=== PATIENT | male | born 1990 | race Caucasian/White ===

== ENCOUNTER 2020-01-24 07:27 | Outpatient (REF) | payer OTHER, SELFPAY ==
[2020-01-24 07:47] LABS: COVID-19 Test Negative (Negative)
== END 2020-01-24 07:28 | disposition home or self-care (01) ==
LOC: HO.LAB 07:27
PROVIDERS: Visit Provider Internal Medicine
DX: Z20.828 Contact with and (suspected) exposure to other viral communicable diseases (principal)
CPT/HCPCS: 87635

== ENCOUNTER 2020-03-05 09:29 | Outpatient (REF) | payer OTHER, SELFPAY ==
[2020-03-05 10:14] LABS: COVID-19 Test Negative (Negative)
== END 2020-03-05 09:30 | disposition home or self-care (01) ==
LOC: HO.EMPCOV 09:29
PROVIDERS: PCP Internal Medicine Sports Medicine; Visit Provider Internal Medicine
DX: Z20.828 Contact with and (suspected) exposure to other viral communicable diseases (principal)
CPT/HCPCS: 87635; C9803

== ENCOUNTER 2020-03-13 08:53 | Outpatient (REF) | payer OTHER, SELFPAY ==
[2020-03-13 09:15] LABS: COVID-19 Test Negative (Negative)
== END 2020-03-13 08:54 | disposition home or self-care (01) ==
LOC: HO.EMPCOV 08:53
PROVIDERS: Visit Provider Internal Medicine
DX: Z20.828 Contact with and (suspected) exposure to other viral communicable diseases (principal)
CPT/HCPCS: 87635; C9803

== ENCOUNTER 2020-04-12 11:30 | Outpatient (REF) | payer OTHER, SELFPAY ==
[2020-04-12 12:11] LABS: COVID-19 Test Negative (Negative)
== END 2020-04-12 11:31 | disposition home or self-care (01) ==
LOC: HO.EMPCOV 11:30
PROVIDERS: Visit Provider Internal Medicine
DX: Z20.828 Contact with and (suspected) exposure to other viral communicable diseases (principal)
CPT/HCPCS: 36415; 87635; C9803

== ENCOUNTER 2020-04-14 09:31 | Outpatient (REF) | payer OTHER, SELFPAY ==
[2020-04-14 09:51] LABS: COVID-19 Test Negative (Negative)
== END 2020-04-14 09:32 | disposition home or self-care (01) ==
LOC: HO.EMPCOV 09:31
PROVIDERS: Visit Provider Internal Medicine
DX: Z20.828 Contact with and (suspected) exposure to other viral communicable diseases (principal)
CPT/HCPCS: 36415; 87635; C9803

== ENCOUNTER 2020-05-04 11:25 | Outpatient (REF) | payer SELFPAY ==
[2020-05-04 13:06] LABS: Cholesterol 158 mg/dL
[2020-05-05 09:22] LABS: SARS COV2 IgG Negative (Negative)
== END 2020-05-04 11:26 | disposition home or self-care (01) ==
LOC: HO.LNC 11:25
PROVIDERS: Visit Provider Pathology Anatomic Pathology & Clinical Pathology
DX: Z13.89 Encounter for screening for other disorder (principal)
CPT/HCPCS: 36415; 82465; 86769

== ENCOUNTER 2020-07-18 21:07 | Emergency (ER) | payer OTHER, SELFPAY ==
--- NOTE | ~2020-07-18 | XR_ITS ---
EXAMINATION: XR CHEST CLINICAL INFORMATION: Dictations COMPARISON: None TECHNIQUE: Frontal view of the chest was obtained. FINDINGS: The lungs are well-expanded and clear of acute process. The heart size and pulmonary vascularity is normal. No gross bony abnormality seen. XR/XR chest 1V IMPRESSION: Unremarkable chest exam.
[2020-07-18 21:27] VITALS: BP 184/102; PULSE 122; RESP 20; TEMP 36.7; O2SAT 98; BMI 27.2
--- NOTE | 2020-07-18 21:32 | ED_ITS ---
HPI - Arrhythmia/Palpitations General Chief Complaint: Chest Pain Stated Complaint: chest tightness Time Seen by Provider: 07/18/20 21:30 Source: patient Mode of arrival: ambulatory Limitations: no limitations History of Present Illness MD complaint: rapid heart beat, heart racing and palpitations Onset (ago): minute(s) (30) Duration: constant Severity: moderate Context: occurred during rest Associated symptoms: chest pain (tightness), shortness of breath and anxiety Related Data Previous Rx's Medication Instructions Recorded metoprolol succinate [Toprol XL] 25 mg PO DAILY #30 tab 07/19/20 Allergies Allergy/AdvReac Type Severity Reaction Status Date / Time environmental Allergy Unknown Uncoded 11/05/17 00:00 SEASONAL ALLERGIES Allergy Unknown RUNNY Uncoded 12/22/19 18:47 NOSE, WATERY EYES seasonal allergies Allergy Unknown Uncoded 05/27/15 00:00 Review of Systems Review of Systems: Constitutional : No Weight loss, No Fever, No Chills ENT/Mouth : No sore throat, No Rhinorrhea Eyes: No Eye Pain, No Swelling Cardiovascular : pos Chest Pain, pos SOB, no Dyspnea on Exertion, No Orthopnea, No Edema, pos Palpitations Respiratory : No Cough, No Sputum Gastrointestinal : no Nausea, No Vomiting, No Diarrhea, No abdominal Pain, No Hematochezia, No Melena Genitourinary : No Dysuria, No Urinary Frequency Musculoskeletal : No joint pain, No Myalgias, No Joint Swelling Skin : No Skin Lesions, No rash Neuro : No Weakness, No Numbness, No Dizziness, No Headache Psych : No Anxiety/Panic, No Depression Heme/Lymph: No Bruising, No Lymphadenopathy Endocrine : No Polyuria, No Polydipsia All other systems reviewed and are negative [facility] Past Medical History Attestation statement: The following information was validated with the patient. Medical History Compartment syndrome of right lower extremity Social History Social History (Updated 07/18/20 @ 21:56 by Lillian Amor DO) Alcohol intake: never Smoking Status: Never smoker Use of substances other than those prescribed or required for medical reasons: No Advance Directives: No Physical Exam Vital Signs: Vital Signs: Last Vital Signs Temp 98.2 F 07/19/20 03:26 Pulse 79 07/19/20 03:26 Resp 18 07/19/20 03:26 BP 136/98 H 07/19/20 03:26 Pulse Ox 99 07/19/20 03:26 Body Mass Index 27.2 Appearance: Alert. Oriented X3. No acute distress. Eyes: Pupils equal, round and reactive to light. ENT: Pharynx normal. Neck: Normal inspection. Neck supple. CVS: tachycardic heart rate and rhythm. Pulses normal. Respiratory: No respiratory distress. Breath sounds normal. Abdomen: Soft and nontender. Skin: Skin warm and dry. Normal skin color. Normal skin turgor. Extremities: No lower extremity edema. No calf ttp Neuro: Oriented X 3. No motor deficit. No sensory deficit. Course Course Course Narrative: still HTNive and tachycardic IV 5mg lopressor ordered, initial trop and ddimer negative BP 130s, HR 90s after lopressor 1230am repeat troponin pending BP 140s but HR back up to 120s PO metoprolol ordered symptoms resolved trop flat expect rise due to tachycardia - responded well to bblocker, will have him follow up with cardiology MDM - Arrhythmia/Palpitations MDM Narrative Medical decision making narrative: 30 yo male otherwise healthy here with chest tightness and dyspnea with HR 120s to 130s in sinus tach, no sig ACS or VTE risk factors, could be anxiety but will need labs, lytes, troponin, ddimer, attempt IVF and IV ativan, dispo per results, improvement and findings. Lab Data Result diagrams: 07/18/20 21:48 07/18/20 21:48 Labs: Lab Results 07/18/20 07/18/20 07/18/20 Range/Units 21:48 21:48 21:48 WBC 9.0 (4.8-10.8) X10*3/uL RBC 4.96 (4.60-5.80) X10*6/uL Hgb 14.3 (14.0-18.0) g/dl Hct 41.9 L (42-52) % MCV 84.5 (80-98) fL MCH 28.8 (27.0-33.0) pg MCHC 34.1 (31.0-36.0) g/dl RDW 12.1 (11.0-16.0) % Plt Count 220 (160-400) X10*3/uL MPV 11.4 (9.4-12.4) fL Immature Gran % (Auto) 0.3 (0.0-0.4) % Neut % (Auto) 74.5 H (45-73) % Lymph % (Auto) 17.3 L (20-40) % [place] % (Auto) 6.6 (2-11) % Eos % (Auto) 1.1 (0-4) % Baso % (Auto) 0.2 (0-2) % Lymph # (Auto) 1.6 (1.2-4.9) X10*3/uL [place] # (Auto) 0.6 (0.1-1.2) X10*3/uL Eos # (Auto) 0.1 (0.0-0.4) X10*3/uL Baso # (Auto) 0.0 (0.0-0.2) X10*3/uL Abs Immat Gran (auto) 0.03 (0.00-0.03) X10*3/uL Absolute Neuts (auto) 6.7 (2.0-8.3) X10*3/uL Absolute Nucleated RBC 0.000 (0.0-0.012) X10*3/uL Nucleated RBC % (auto) 0.0 (0.0-0.2) /100WBC PT (10.8-13.0) SEC INR (0.9-1.1) APTT 31.6 (24.1-38.0) SEC D-Dimer < 200 NG/ML Sodium 139 (135-145) mmol/L Potassium 3.5 (3.3-5.1) mmol/L Chloride 104 (96-108) mmol/L Carbon Dioxide 26 (22-29) mmol/L Anion Gap 13 (12-20) BUN 15 (9-16) mg/dL Creatinine 1.00 (0.5-1.4) mg/dL Estim Creat Clear Calc 116.4 Estimated GFR > 60 Random Glucose 204 H (60-115) mg/dL Calcium 9.4 (8.4-10.2) mg/dL Magnesium 1.6 (1.6-2.6) mg/dL Total Bilirubin 0.4 (0.0-1.0) mg/dL Direct Bilirubin < 0.2 (0.0-0.5) mg/dL AST 20 (5-37) U/L ALT 31 (0-40) U/L Alkaline Phosphatase 91 (39-117) U/L Troponin I High Sens (<3.5-35.0) ng/L Total Protein 7.0 (6.5-8.0) g/dL Albumin 4.4 (3.5-5.0) g/dL Lipase 22 (8-78) U/L TSH (0.32-4.0) uIU/mL Thyroxine (T4) 6.8 (4.5-12.0) ug/dL 07/18/20 07/18/20 07/18/20 Range/Units 21:48 21:48 21:48 WBC (4.8-10.8) X10*3/uL RBC (4.60-5.80) X10*6/uL Hgb (14.0-18.0) g/dl Hct (42-52) % MCV (80-98) fL MCH (27.0-33.0) pg MCHC (31.0-36.0) g/dl RDW (11.0-16.0) % Plt Count (160-400) X10*3/uL MPV (9.4-12.4) fL Immature Gran % (Auto) (0.0-0.4) % Neut % (Auto) (45-73) % Lymph % (Auto) (20-40) % [place] % (Auto) (2-11) % Eos % (Auto) (0-4) % Baso % (Auto) (0-2) % Lymph # (Auto) (1.2-4.9) X10*3/uL [place] # (Auto) (0.1-1.2) X10*3/uL Eos # (Auto) (0.0-0.4) X10*3/uL Baso # (Auto) (0.0-0.2) X10*3/uL Abs Immat Gran (auto) (0.00-0.03) X10*3/uL Absolute Neuts (auto) (2.0-8.3) X10*3/uL Absolute Nucleated RBC (0.0-0.012) X10*3/uL Nucleated RBC % (auto) (0.0-0.2) /100WBC PT 12.6 (10.8-13.0) SEC INR 1.1 (0.9-1.1) APTT (24.1-38.0) SEC D-Dimer NG/ML Sodium (135-145) mmol/L Potassium (3.3-5.1) mmol/L Chloride (96-108) mmol/L Carbon Dioxide (22-29) mmol/L Anion Gap (12-20) BUN (9-16) mg/dL Creatinine (0.5-1.4) mg/dL Estim Creat Clear Calc Estimated GFR Random Glucose (60-115) mg/dL Calcium (8.4-10.2) mg/dL Magnesium (1.6-2.6) mg/dL Total Bilirubin (0.0-1.0) mg/dL Direct Bilirubin (0.0-0.5) mg/dL AST (5-37) U/L ALT (0-40) U/L Alkaline Phosphatase (39-117) U/L Troponin I High Sens 4.3 (<3.5-35.0) ng/L Total Protein (6.5-8.0) g/dL Albumin (3.5-5.0) g/dL Lipase (8-78) U/L TSH 0.55 (0.32-4.0) uIU/mL Thyroxine (T4) (4.5-12.0) ug/dL 07/19/20 07/19/20 Range/Units 00:48 03:03 WBC (4.8-10.8) X10*3/uL RBC (4.60-5.80) X10*6/uL Hgb (14.0-18.0) g/dl Hct (42-52) % MCV (80-98) fL MCH (27.0-33.0) pg MCHC (31.0-36.0) g/dl RDW (11.0-16.0) % Plt Count (160-400) X10*3/uL MPV (9.4-12.4) fL Immature Gran % (Auto) (0.0-0.4) % Neut % (Auto) (45-73) % Lymph % (Auto) (20-40) % [place] % (Auto) (2-11) % Eos % (Auto) (0-4) % Baso % (Auto) (0-2) % Lymph # (Auto) (1.2-4.9) X10*3/uL [place] # (Auto) (0.1-1.2) X10*3/uL Eos # (Auto) (0.0-0.4) X10*3/uL Baso # (Auto) (0.0-0.2) X10*3/uL Abs Immat Gran (auto) (0.00-0.03) X10*3/uL Absolute Neuts (auto) (2.0-8.3) X10*3/uL Absolute Nucleated RBC (0.0-0.012) X10*3/uL Nucleated RBC % (auto) (0.0-0.2) /100WBC PT (10.8-13.0) SEC INR (0.9-1.1) APTT (24.1-38.0) SEC D-Dimer NG/ML Sodium (135-145) mmol/L Potassium (3.3-5.1) mmol/L Chloride (96-108) mmol/L Carbon Dioxide (22-29) mmol/L Anion Gap (12-20) BUN (9-16) mg/dL Creatinine (0.5-1.4) mg/dL Estim Creat Clear Calc Estimated GFR Random Glucose (60-115) mg/dL Calcium (8.4-10.2) mg/dL Magnesium (1.6-2.6) mg/dL Total Bilirubin (0.0-1.0) mg/dL Direct Bilirubin (0.0-0.5) mg/dL AST (5-37) U/L ALT (0-40) U/L Alkaline Phosphatase (39-117) U/L Troponin I High Sens 7.0 D 7.2 (<3.5-35.0) ng/L Total Protein (6.5-8.0) g/dL Albumin (3.5-5.0) g/dL Lipase (8-78) U/L TSH (0.32-4.0) uIU/mL Thyroxine (T4) (4.5-12.0) ug/dL ECG Data Attestation: I personally reviewed and interpreted this ECG as follows: ECG interpretation date: 07/18/20 ECG interpretation time: 21:32 Interpretation: Rate: 129 Rhythm: sinus tachycardia [place]: normal Normal P waves. Normal BULMAR[place]. Normal QRS complex. ST T wave : no SEBASTIAN, nonspecific inf leads qTC: normal prior studies: no acute ischemia The study has been interpreted contemporaneously by me. . Discharge Plan Discharge Clinical Impression: Tachycardia HTN (hypertension) Qualifiers: Hypertension type: unspecified Qualified Code(s): I10 - Essential (primary) hypertension Patient Disposition: Home, Self-Care Instructions: Hypertension (ED), Tachycardia (ED) Additional Instructions: return to ED for any worsening symptoms or concerns Prescriptions: New metoprolol succinate [Toprol XL] 25 mg tablet extended release 24 hr 25 mg PO DAILY Qty: 30 RF: 0 Referrals: Bridger Momin MD [Physician] - 2 days Stand Alone Forms: Work/School Release
[2020-07-18 21:54] LABS: MANUAL DIFF FLAG NO
[2020-07-18] MEDS: 0.9 % Sodium Chloride 1,000 ML 999 ML IVCONT (21:54)
[2020-07-18 21:55] LABS: Basophils Percent Auto 0.2 % (0-2); Eosinophils Absolute Auto 0.1 X10*3/uL (0.0-0.4); Eosinophils Percent Auto 1.1 % (0-4); Hematocrit 41.9 % (42-52); Hemoglobin 14.3 g/dl (14.0-18.0); Imm Gran Abs Auto 0.03 X10*3/uL (0.00-0.03); Imm Gran Pct Auto 0.3 % (0.0-0.4); Lymphocytes Absolute Auto 1.6 X10*3/uL (1.2-4.9); Lymphocytes Percent Auto 17.3 % (20-40); Mean Corpuscular HGB Conc 34.1 g/dl (31.0-36.0); Mean Corpuscular Hemoglobin 28.8 pg (27.0-33.0); Mean Corpuscular Volume 84.5 fL (80-98); Mean Platelet Volume 11.4 fL (9.4-12.4); Monocytes Absolute Auto 0.6 X10*3/uL (0.1-1.2); Monocytes Percent Auto 6.6 % (2-11); Neutrophils Absolute Auto 6.7 X10*3/uL (2.0-8.3); Neutrophils Percent Auto 74.5 % (45-73); Platelet Count 220 X10*3/uL (160-400); Red Blood Count 4.96 X10*6/uL (4.60-5.80); Red Cell Distribution Width 12.1 % (11.0-16.0)
[2020-07-18] MEDS: LORazepam 2 MG/ML VIAL 1 MG IVPUSH (21:55)
[2020-07-18 21:57] VITALS: PULSE 106
--- NOTE | 2020-07-18 21:57 | PC.NURSE ---
iv inserted, labs drawn, xray performed, will continue to moitor.
[2020-07-18 22:07] LABS: INTERNATIONAL NORM RATIO 1.1 (0.9-1.1); Prothrombin Time 12.6 SEC (10.8-13.0)
[2020-07-18 22:11] LABS: Partial Thromboplastin Time 31.6 SEC (24.1-38.0)
[2020-07-18 22:16] LABS: D Dimer < 200 NG/ML
[2020-07-18 22:20] LABS: Alanine Aminotransferase 31 U/L (0-40); Albumin Level 4.4 g/dL (3.5-5.0); Alkaline Phosphatase 91 U/L (39-117); Anion Gap 13 (12-20); Aspartate Amino Transferase 20 U/L (5-37); Bilirubin Direct < 0.2 mg/dL (0.0-0.5); Bilirubin Total 0.4 mg/dL (0.0-1.0); Blood Urea Nitrogen 15 mg/dL (9-16); Calcium 9.4 mg/dL (8.4-10.2); Carbon Dioxide 26 mmol/L (22-29); Chloride 104 mmol/L (96-108); Creatinine Clr Calc Pharmacy 116.4; Estimated Glomerular Filt Rate > 60; Glucose Random 204 mg/dL (60-115); Lipase 22 U/L (8-78); Magnesium 1.6 mg/dL (1.6-2.6); Potassium 3.5 mmol/L (3.3-5.1); Sodium 139 mmol/L (135-145)
[2020-07-18 22:26] LABS: Troponin-I High Sensitivity 4.3 ng/L (<3.5-35.0)
[2020-07-18 22:40] LABS: T4 Thyroxine 6.8 ug/dL (4.5-12.0)
[2020-07-18 22:41] LABS: Thyroid Stimulating Hormone 0.55 uIU/mL (0.32-4.0)
[2020-07-18] MEDS: Metoprolol Tartrate 5 MG/5 ML VIAL IVPUSH (22:44)
[2020-07-18 22:48] VITALS: BP 138/95; PULSE 97; RESP 18; O2SAT 98
--- NOTE | 2020-07-18 23:58 | PC.NURSE ---
PT RESTING IN BED SKIN PWD, RESPIRATIONS EVEN UNLABORED. REPORTS FEELING A LITTLE BETTER FROM [facility]INICAL MANAGER HOME CARE, YET CONTINUED LEFT CHEST DISCOMFORT RADIATING TO LEFT CHEST. HR 97, BP IMPROVED. AWAITING REPEAT TROPONIN. AWARE OF PLAN OF CARE.
[2020-07-19] VITALS: BP 137/94; PULSE 97; RESP 18; O2SAT 98
--- NOTE | 2020-07-19 | ECG_ITS ---
Test Reason : CHEST PAIN Blood Pressure : / mmHG Vent. Rate : 129 BPM Atrial Rate : 129 BPM P-R Int : 166 ms QRS Dur : 078 ms QT Int : 288 ms P-R-T Axes : 062 068 021 degrees QTc Int : 421 ms Sinus tachycardia Otherwise normal ECG No previous ECGs available Referred By: Lillian Amor Electronically Signed By:AMRIT BECERRIL
[2020-07-19 00:49] VITALS: BP 138/95; PULSE 99; RESP 18; TEMP 36.8; O2SAT 98
[2020-07-19] MEDS: Metoprolol Tartrate 25 MG TABLET PO (00:55)
[2020-07-19 02:00] VITALS: BP 132/90; PULSE 83; RESP 18; O2SAT 98
--- NOTE | 2020-07-19 02:11 | PC.NURSE ---
PT RESTING IN BED SKIN PWD RESPIRATIONS EVEN UNLABORED. BP AND HR IMPROVED. NSR ON MONITOR. PT ALSO REPORTING LEFT CHEST DISCOMFORT RELIEVED. STILL FEELING SLIGHT DISCOMFORT IN LEFT NECK. AWAITING SERIAL TROPONIN DRAW. PT AWARE OF PLAN OF CARE.
[2020-07-19 03:04] VITALS: BP 138/96; PULSE 75; RESP 18; O2SAT 99
[2020-07-19 03:26] VITALS: BP 136/98; PULSE 79; RESP 18; TEMP 36.8; O2SAT 99
[2020-07-19 03:44] LABS: Troponin-I High Sensitivity 7.2 ng/L (<3.5-35.0)
[2020-07-20 05:12] LABS: Triiodothyronine T3 Free 3.3 pg/mL (2.3-4.2)
== END 2020-07-19 03:52 | disposition home or self-care (01) ==
PROVIDERS: Emergency Provider Emergency Medicine; PCP Internal Medicine Sports Medicine
DX: R07.9 Chest pain, unspecified (principal); R00.0 Tachycardia, unspecified; I10 Essential (primary) hypertension
CPT/HCPCS: 36415; 71045; 80048; 80076; 83690; 83735; 84436; 84443; 84481; 84484; 85025; 85379; 85610; 85730; 93005; 96361; 96374; 96375; 99284; 99285; J2060

== ENCOUNTER → 2020-07-26 11:17 | Outpatient (BNVA) | payer OTHER, SELFPAY | PROVIDERS: Visit Provider Internal Medicine Cardiovascular Disease | DX: I10 Essential (primary) hypertension (principal); R07.9 Chest pain, unspecified; R00.2 Palpitations | CPT/HCPCS: 93005 ==

== ENCOUNTER → 2020-08-02 07:26 | Outpatient (REF) | payer OTHER, SELFPAY ==
--- NOTE | 2020-08-02 07:37 | CA_ITS ---
Acquisition Time: 2020-08-02 09:01:45 Total Exercise Time: 00:11:19 Test Indications: HTN, R/O CAD Medications: SEE CHART Protocol: SOTERO Max HR: 190 BPM 101% of Pred: 188 BPM Max BP: 170/088 mmHG Max Work Load: 13.4 METS Exercise stress test using Sotero protocol, total of 11 min 19 sec. METS 13.40, TAPHR up to 101%. Pt tolerated well, denies any anginal sx. EKG withoutt any arrhythmias, no ischemic changes seen during exercise or in recovery. Normotensive response to exercise. Test reviewed with Dr. Costa. Referred By: Bridger Momin Overread By: Angelica Vigil NP
--- NOTE | 2020-08-02 07:37 | CA_ITS ---
Transthoracic Echocardiogram Patient (Last, First, Middle): Fabricio Calzada J Gender: Male Date of : 1990 Age: 30 Procedure Date: 08/02/2020 Procedure Type: Transthoracic Echocardiogram Location: OP Height: 182.88 cm Weight: 93.9 kg BSA: 2.16 m2 Heart Rate: bpm BP: 134 / 82 mmHg [employer]: Paola MD: Bridger Momin MD Bible Reader: John Costa MD Symptoms: I10 - Essential (primary) hypertension Study Quality: Good ECG Rhythm: Sinus Conclusions: - Normal study Findings Procedure Information The patient receives contrast. Left Ventricle Normal left ventricular size, thickness, and systolic function. The visually estimated ejection fraction is between 60-65%. Diastolic function is normal for age. Right Ventricle Normal right ventricular cavity size and systolic function. Atria Both atria are normal in size. There is no evidence of interatrial shunt. Aortic Valve Normal aortic valve structure and function. There is no aortic valve stenosis. There is no aortic valve regurgitation. Mitral Valve Normal mitral valve structure and function. There is trace mitral valve regurgitation. There is no mitral valve stenosis. Pulmonic Valve The pulmonic valve is likely normal. There is trace pulmonic valve regurgitation. Tricuspid Valve Normal tricuspid valve structure. There is trace tricuspid valve regurgitation. The right ventricular systolic pressure is normal. The right ventricular systolic pressure is 22 mmHg. Normal right atrial pressure. There is no evidence of pulmonary hypertension. Great Vessels All visible segments of the aorta are normal in size. The pulmonary artery was not well visualized. Venous The inferior vena cava is normal in size and collapses greater than 50% with inspiration. Pericardium/Pleural There is no evidence of pericardial effusion. Prior Study Comparison No prior study available for comparison. Measurements 2D Linear Measurements RVIDd: 2.42 RVIDd Index: 1.12 IVSd: 0.98 0.6-0.9/0.6-1.0 cm LVIDd: 5.06 3.9-5.3/4.2-5.9 cm LVIDd Index: 2.34 2.4-3.2/2.2-3.1 cm/m2 LVIDs: 3.40 2.0-3.6 cm LVPWd: 1.07 0.7-1.1 cm Ao Root: 3.40 2.1-3.5 cm LA Diam: 3.20 2.7-3.8/3.0-4.0 cm LAIDs Index: 1.48 1.5-2.3 cm/m2 LV Mass: 239.22 67-162/88-224 g LV Mass Index: 110.75 43-95/49-115 g/m2 LVOT Diam: 2.30 3.0+(-)1.3 cm 2D Systolic Function EF 4C: 70.20 >55% EF 2C: 66.60 >55% EF BiP: 66.00 >55% Mitral Valve MV Pk E: 0.62 MV PK A: 0.36 MV Decel Time: 171.00 E/A: 1.70 E'Lateral: 12.30 E'Medial: 9.36 E/E' Med: 6.70 E/E' Lat: 5.10 Aortic Valve AoV Pk Milad: 1.06 AoV Mn Milad: 0.71 AoV VTI: 0.22 AoV Pk Grad: 4.00 Aov Mn Grad: 2.00 SABRINA Cont.VTI: 3.85 LVOT LVOT Pk Milad: 0.92 LVOT Mn Milad: 0.71 LVOT VTI: 0.20 LVOT Pk Grad: 3.00 LVOT Mn Grad: 2.00 LVOT Diam: 2.30 LVOT Area: 4.15 Diastolic Function MV Pk E: 0.62 MV Pk A: 0.36 E/A: 1.70 E'Medial: 9.36 E/E' Med: 6.70 E' Laterial: 12.30 E/E' Lat: 5.10 Tricuspid Valve TR Pk Milad: 2.16 TR Pk Grad: 19.00 RA Press: 3.00 RVSP: 22.00 Great Vessels Aorta Ao Root-2D: 3.40 2.0-3.7 cm Ao Asc: 3.00 2.1-3.4 cm Ao Arch: 2.80 Updated in Other Vendor System with Status of Final John Costa MD electronically signed on 08/02/2020 4:34:44 PM with status of Final
[2020-08-02 10:49] LABS: Cholesterol 176 mg/dL; HDL Cholesterol 36 mg/dL; LDL Cholesterol Calculated 128 mg/dl; Triglycerides 62 mg/dL
[2020-08-06 14:01] LABS: Metanephrine, Free 59 pg/mL (<=57); Normetanephrines, Free 144 pg/mL (<=148); Total Metanephrine, Free 203 pg/mL (<=205)
== END ==
LOC: HO.CARD 07:26
PROVIDERS: PCP Internal Medicine Sports Medicine; Visit Provider Internal Medicine Cardiovascular Disease
DX: I10 Essential (primary) hypertension (principal); R07.9 Chest pain, unspecified
CPT/HCPCS: 36415; 80061; 82088; 83835; 93016; 93017; 93018; 93306; Q9957

== ENCOUNTER 2020-08-02 10:15 | Outpatient (REF) | payer OTHER, SELFPAY ==
[2020-08-02 10:34] LABS: COVID-19 Test Negative (Negative)
== END 2020-08-02 10:16 | disposition home or self-care (01) ==
LOC: HO.EMPCOV 10:15
PROVIDERS: Visit Provider Internal Medicine
DX: Z20.822 Contact with and (suspected) exposure to COVID-19 (principal)
CPT/HCPCS: 36415; 87635; C9803

== ENCOUNTER → 2020-10-11 14:57 | Outpatient (BNVA) | payer OTHER, SELFPAY | PROVIDERS: PCP Internal Medicine Sports Medicine; Visit Provider Nurse Practitioner Family ==

== ENCOUNTER 2021-03-17 21:15 | Emergency (ER) | payer OTHER, SELFPAY ==
--- NOTE | ~2021-03-17 | CT_ITS ---
EXAMINATION: CT ABDOMEN AND PELVIS WITH CONTRAST CLINICAL INFORMATION: Left lower quadrant pain, question diverticulitis COMPARISON: None TECHNIQUE: Multidetector volumetric images were obtained from the superior aspect of the liver through the pubic symphysis following administration 85 mL of Omnipaque 350 intravenous contrast. Sagittal and coronal reformatted images were obtained on the technologist's workstation. Oral contrast: No This CT examination was performed using dose optimization techniques as appropriate, variously including the following: *Automated exposure control *Adjustment of mA and/or kV according to patient size (this includes techniques or standardized protocols for targeted exams where dose is matched to indication/reason for exam; i.e. extremities or head) *Use of iterative reconstruction technique DLP: 705 mGy-cm FINDINGS: LUNG BASES: Mild dependent atelectasis noted. LIVER, GALLBLADDER, AND BILIARY TREE: The liver is normal in size, shape, and attenuation. No focal hepatic lesion or biliary ductal dilatation is present. Gallbladder appears contracted. PANCREAS: Unremarkable. SPLEEN: Unremarkable. ADRENAL GLANDS: Unremarkable. KIDNEYS AND URETERS: Bilateral nephrograms are symmetric. No hydronephrosis or obstructing calculus identified. BLADDER: Unremarkable. GASTROINTESTINAL TRACT: The descending colon is collapsed, and there is mild mural prominence as well as a small amount of fluid in left paracolic gutter tracking in the pelvis. Appearance raises concern for a colitis in the proper clinical setting. No evidence of bowel obstruction. The appendix is unremarkable. No free air is seen. ABDOMINAL WALL: No significant hernia is appreciated. LYMPH NODES: Normal. VASCULAR: Unremarkable. PELVIC VISCERA: Unremarkable. OSSEOUS STRUCTURES: Unremarkable. CT/CT abdomen pelvis w con IMPRESSION: Small amount of fluid along left paracolic gutter with mild mural prominence of the adjacent collapsed descending colon. Appearance raises concern for a colitis in the proper clinical setting. Fleischner guidelines were followed.
[2021-03-17 21:43] VITALS: BP 170/106; PULSE 103; RESP 16; TEMP 36.9; O2SAT 96; BMI 28.7
[2021-03-17 22:13] LABS: COVID-19 Test Negative (Negative)
--- NOTE | 2021-03-17 22:50 | ED.ABDPAIN ---
HPI - Abdominal Pain General Chief Complaint: Abdominal Pain Stated Complaint: left quad pain Time Seen by Provider: 03/17/21 22:26 Source: patient Mode of arrival: ambulatory Limitations: no limitations History of Present Illness HPI narrative: Patient no significant past medical history been having nausea with left lower abdominal pain also had some URI symptoms for last 10 days patient only been vaccinated against COVID no fever or chills no urinary complaint patient never had any kidney stones in the past no blood in the stool. Patient has more pain on left lower quadrant which increases on ambulation does not feel hungry feels slightly bloated Related Data Previous Rx's Medication Instructions Recorded ciprofloxacin HCl 500 mg tablet 500 mg PO BID #20 tab 03/18/21 (Cipro) metronidazole 500 mg tablet 500 mg PO BID #20 tab 03/18/21 ondansetron 4 mg disintegrating 4 mg PO Q6-8H PRN #7 tab 03/18/21 tablet tramadol 50 mg tablet 50 mg PO Q6H PRN #20 tab 03/18/21 Allergies Allergy/AdvReac Type Severity Reaction Status Date / Time SEASONAL ALLERGIES Allergy Unknown RUNNY Uncoded 03/17/21 21:43 NOSE, WATERY EYES Review of Systems Review of Systems Yes all other systems are reviewed and are negative Physical Exam Vital Signs: Vital Signs: Last Vital Signs Temp 97.5 F 03/17/21 23:45 Pulse 92 03/17/21 23:45 Resp 16 03/17/21 23:45 BP 173/100 H 03/17/21 23:45 Pulse Ox 99 03/17/21 23:45 BMI result Body Mass Index 28.7 Appearance: Alert. Oriented X3. No acute distress. Eyes: No pallor icterus ENT: Pharynx normal. Oral Mucosa moist Neck: Normal inspection. Neck supple. CVS: Normal heart rate and rhythm. Pulses normal. Respiratory: No respiratory distress. Equal air entry bilateral, no wheezing/rales/rhonchi Abdomen: Soft and dip tenderness left lower quadrant no rebound tenderness or guarding, Bowel sounds are present, no mass palpable, no CVA tenderness Skin: Skin warm and dry. Normal skin color. Normal skin turgor. Extremities: No lower extremity edema. No calf tenderness Neuro: Oriented X 3. MDM - Abdominal Pain MDM Narrative Medical decision making narrative: Patient with slight leukocytosis COVID-[address] scan abdomen showed colitis patient does not have any diarrhea will discharge patient on Levaquin and Flagyl Lab Data Attestation: I reviewed the patient's lab results. Result diagrams: 03/17/21 22:59 03/17/21 22:59 Labs: Lab Results 03/17/21 03/17/21 03/17/21 Range/Units 21:52 22:59 22:59 WBC 13.4 H (4.8-10.8) X10*3/uL RBC 5.48 (4.60-5.80) X10*6/uL Hgb 15.6 (14.0-18.0) g/dl Hct 46.3 (42.0-52.0) % MCV 84.5 (80.0-98.0) fL MCH 28.5 (27.0-33.0) pg MCHC 33.7 (31.0-36.0) g/dl RDW 12.3 (11.0-16.0) % Plt Count 253 (160-400) X10*3/uL MPV 10.5 (9.4-12.4) fL Immature Gran % (Auto) 0.7 H (0.0-0.4) % Neut % (Auto) 72.4 (45-73) % Lymph % (Auto) 15.2 L (20-40) % [place] % (Auto) 9.9 (2-11) % Eos % (Auto) 1.6 (0-4) % Baso % (Auto) 0.2 (0-2) % Lymph # (Auto) 2.0 (1.2-4.9) X10*3/uL [place] # (Auto) 1.3 H (0.1-1.2) X10*3/uL Eos # (Auto) 0.2 (0.0-0.4) X10*3/uL Baso # (Auto) 0.0 (0.0-0.2) X10*3/uL Abs Immat Gran (auto) 0.10 H (0.00-0.03) X10*3/uL Absolute Neuts (auto) 9.7 H (2.0-8.3) x10*3/uL Absolute Nucleated RBC 0.000 (0.0-0.012) X10*3/uL Nucleated RBC % (auto) 0.0 (0.0-0.2) /100WBC Sodium 139 (135-145) mmol/L Potassium 4.1 (3.3-5.1) mmol/L Chloride 102 (96-108) mmol/L Carbon Dioxide 28 (22-29) mmol/L Anion Gap 13 (12-20) BUN 12 (9-16) mg/dL Creatinine 1.02 (0.5-1.4) mg/dL Estim Creat Clear Calc 125.0 Estimated GFR > 60 Random Glucose 103 D (60-115) mg/dL Calcium 10.1 D (8.4-10.2) mg/dL Total Bilirubin 0.4 (0.0-1.0) mg/dL AST 20 (5-37) U/L ALT 30 (0-40) U/L Alkaline Phosphatase 101 (39-117) U/L Total Protein 7.4 (6.5-8.0) g/dL Albumin 4.5 (3.5-5.0) g/dL Lipase 18 (8-78) U/L COVID-19 (NIC) Negative (Negative) COVID-19 Clin Com See Note Discharge Plan Discharge Clinical Impression: Colitis Patient Disposition: Home, Self-Care Instructions: Colitis (ED) Additional Instructions: Drink plenty of fluid, advanced diet as tolerated Antibiotic as advised Pain medication as advised Report to the ER/PCP if not better Prescriptions: New metronidazole 500 mg tablet 500 mg PO BID Qty: 20 RF: 0 ciprofloxacin HCl [Cipro] 500 mg tablet 500 mg PO BID Qty: 20 RF: 0 tramadol 50 mg tablet 50 mg PO Q6H PRN (Reason: pain) Qty: 20 RF: 0 ondansetron 4 mg tablet,disintegrating 4 mg PO Q6-8H PRN (Reason: nausea and vomiting) Qty: 7 RF: 0 Stand Alone Forms: Work/School Release Interventions: ED Discharge Assessment Last Done: 03/18/21 01:06 Discharge Date/Time: 03/18/21 01:08 [facility] Past Medical History Medical History Compartment syndrome of right lower extremity Surgical History H/O removal of cyst Family History Family History Mother HTN (hypertension) MVP (mitral valve prolapse) Diabetes Father Diabetes HTN (hypertension) Maternal Grandfather Heart attack CAD (coronary artery disease) Social History Social History Alcohol intake: current Patient Tobacco Use Status: Never used Tobacco Advance Directives: No Advance Directives Information Provided: Yes
[2021-03-17 23:18] LABS: MANUAL DIFF FLAG NO
[2021-03-17 23:19] LABS: Basophils Percent Auto 0.2 % (0-2); Eosinophils Absolute Auto 0.2 X10*3/uL (0.0-0.4); Eosinophils Percent Auto 1.6 % (0-4); Hematocrit 46.3 % (42.0-52.0); Hemoglobin 15.6 g/dl (14.0-18.0); Imm Gran Pct Auto 0.7 % (0.0-0.4); Lymphocytes Percent Auto 15.2 % (20-40); Mean Corpuscular HGB Conc 33.7 g/dl (31.0-36.0); Mean Corpuscular Hemoglobin 28.5 pg (27.0-33.0); Mean Corpuscular Volume 84.5 fL (80.0-98.0); Mean Platelet Volume 10.5 fL (9.4-12.4); Monocytes Absolute Auto 1.3 X10*3/uL (0.1-1.2); Monocytes Percent Auto 9.9 % (2-11); Neutrophils Absolute Auto 9.7 x10*3/uL (2.0-8.3); Neutrophils Percent Auto 72.4 % (45-73); Platelet Count 253 X10*3/uL (160-400); Red Blood Count 5.48 X10*6/uL (4.60-5.80); Red Cell Distribution Width 12.3 % (11.0-16.0); White Blood Count 13.4 X10*3/uL (4.8-10.8)
[2021-03-17 23:22] VITALS: RESP 16
[2021-03-17] MEDS: 0.9 % Sodium Chloride 1,000 ML 999 ML IVCONT (23:22)
[2021-03-17] MEDS: Morphine Sulfate 4 MG/ML CARTRIDGE IVPUSH (23:22)
[2021-03-17] MEDS: ondansetron HCL 4 MG/2 ML VIAL IVPUSH (23:22)
[2021-03-17 23:42] LABS: Alanine Aminotransferase 30 U/L (0-40); Albumin Level 4.5 g/dL (3.5-5.0); Alkaline Phosphatase 101 U/L (39-117); Anion Gap 13 (12-20); Aspartate Amino Transferase 20 U/L (5-37); Bilirubin Total 0.4 mg/dL (0.0-1.0); Blood Urea Nitrogen 12 mg/dL (9-16); Calcium 10.1 mg/dL (8.4-10.2); Carbon Dioxide 28 mmol/L (22-29); Chloride 102 mmol/L (96-108); Estimated Glomerular Filt Rate > 60; Glucose Random 103 mg/dL (60-115); Lipase 18 U/L (8-78); Potassium 4.1 mmol/L (3.3-5.1); Sodium 139 mmol/L (135-145); Total Protein 7.4 g/dL (6.5-8.0)
[2021-03-17 23:45] VITALS: BP 173/100; PULSE 92; RESP 16; TEMP 36.4; O2SAT 99
[2021-03-17] MEDS: iohexoL 350 MG/ML 100 ML INFUS..BTL 85 ML IV (23:54)
[2021-03-18] MEDS: levoFLOXacin 500 MG TABLET PO (00:57)
[2021-03-18] MEDS: Ketorolac Tromethamine 30 MG/ML VIAL IVPUSH (00:57)
[2021-03-18] MEDS: metroNIDAZOLE 500 MG TABLET PO (00:57)
== END 2021-03-18 01:08 | disposition home or self-care (01) ==
PROVIDERS: Emergency Provider Internal Medicine
DX: K52.9 Noninfective gastroenteritis and colitis, unspecified (principal); Z20.822 Contact with and (suspected) exposure to COVID-19; R10.32 Left lower quadrant pain
CPT/HCPCS: 36415; 74177; 80053; 83690; 85025; 87635; 96361; 96374; 96375; 99284; J1885; J2270; J2405; Q9967

== ENCOUNTER 2021-03-18 10:57 | Emergency (ER) | payer OTHER, SELFPAY ==
[2021-03-18 11:05] VITALS: BP 147/102; PULSE 80; RESP 18; TEMP 36.7; O2SAT 100; BMI 28.7
[2021-03-18 11:19] LABS: MANUAL DIFF FLAG NO
[2021-03-18 11:23] LABS: Basophils Percent Auto 0.2 % (0-2); Eosinophils Absolute Auto 0.2 X10*3/uL (0.0-0.4); Eosinophils Percent Auto 1.2 % (0-4); Hematocrit 44.1 % (42.0-52.0); Hemoglobin 14.9 g/dl (14.0-18.0); Imm Gran Abs Auto 0.06 X10*3/uL (0.00-0.03); Imm Gran Pct Auto 0.5 % (0.0-0.4); Lymphocytes Absolute Auto 1.7 X10*3/uL (1.2-4.9); Lymphocytes Percent Auto 13.7 % (20-40); Mean Corpuscular HGB Conc 33.8 g/dl (31.0-36.0); Mean Corpuscular Hemoglobin 28.7 pg (27.0-33.0); Mean Corpuscular Volume 84.8 fL (80.0-98.0); Mean Platelet Volume 10.6 fL (9.4-12.4); Monocytes Absolute Auto 1.1 X10*3/uL (0.1-1.2); Monocytes Percent Auto 9.4 % (2-11); Platelet Count 223 X10*3/uL (160-400); Red Cell Distribution Width 12.3 % (11.0-16.0); White Blood Count 12.1 X10*3/uL (4.8-10.8)
[2021-03-18 11:38] LABS: Alanine Aminotransferase 26 U/L (0-40); Albumin Level 4.4 g/dL (3.5-5.0); Alkaline Phosphatase 89 U/L (39-117); Anion Gap 15 (12-20); Aspartate Amino Transferase 19 U/L (5-37); Bilirubin Direct 0.4 mg/dL (0.0-0.5); Blood Urea Nitrogen 13 mg/dL (9-16); Calcium 9.8 mg/dL (8.4-10.2); Carbon Dioxide 25 mmol/L (22-29); Chloride 104 mmol/L (96-108); Creatinine Clr Calc Pharmacy 138.6; Estimated Glomerular Filt Rate > 60; Glucose Random 105 mg/dL (60-115); Lipase 8 U/L (8-78); Potassium 4.6 mmol/L (3.3-5.1); Sodium 139 mmol/L (135-145); Total Protein 7.1 g/dL (6.5-8.0)
--- NOTE | 2021-03-18 14:26 | ED.NAVMDI ---
HPI - Nausea/Vomiting/Diarrhea General Chief complaint: Nausea/Vomiting/Diarrhea Stated complaint: nausea, abd pain, headache, coughing up blood Time Seen by Provider: 03/18/21 14:26 Source: patient Mode of arrival: ambulatory Limitations: no limitations History of Present Illness HPI Narrative: patient was diagnosed with colitis yesterday in the ED. Today vomited blood clots and now with black stool. Patient initially vomited normally but then his third episode of vomiting had clots in it. MD elicited complaint: nausea and vomiting Onset (ago): hour(s) Description of vomiting: bloody Description of diarrhea: black tarry Location of pain: LUQ Pain consistency: intermittent Severity: mild Associated symptoms: nausea/vomiting Related Data Previous Rx's Medication Instructions Recorded ciprofloxacin HCl 500 mg tablet 500 mg PO BID #20 tab 03/18/21 (Cipro) metronidazole 500 mg tablet 500 mg PO BID #20 tab 03/18/21 ondansetron 4 mg disintegrating 4 mg PO Q6-8H PRN #7 tab 03/18/21 tablet pantoprazole 40 mg tablet,delayed 40 mg PO DAILY #20 tab 03/18/21 release (Protonix) tramadol 50 mg tablet 50 mg PO Q6H PRN #20 tab 03/18/21 Allergies Allergy/AdvReac Type Severity Reaction Status Date / Time SEASONAL ALLERGIES Allergy Unknown RUNNY Uncoded 03/17/21 21:43 NOSE, WATERY EYES Review of Systems Constitutional: Constitutional: Reports no additional constitutional complaints Eyes: Eyes: Reports no additional eye complaints ENT: Denies dizziness Cardiovascular: Cardiovascular: Reports no additional cardiovascular complaints Respiratory: Respiratory: Reports as per HPI Gastrointestinal: Gastrointestinal: Reports no additional gastrointestinal complaints Musculoskeletal: Musculoskeletal: Reports no additional musculoskeletal complaints Integumentary/Breasts: Skin/Breast: Denies rash Neurologic: Reports system reviewed and no additional complaints, except as documented, Denies dizziness and Denies Sensory deficit (Neuro) Psychiatric: Psychiatric: Denies anxiety PMFSH Past Medical History Medical History Compartment syndrome of right lower extremity Surgical History H/O removal of cyst Family History Family History Mother HTN (hypertension) MVP (mitral valve prolapse) Diabetes Father Diabetes HTN (hypertension) Maternal Grandfather Heart attack CAD (coronary artery disease) Social History Social History Alcohol intake: current Patient Tobacco Use Status: Never used Tobacco Advance Directives: No Advance Directives Information Provided: No Physical Exam Vital Signs: Vital Signs: Last Vital Signs Temp 98.1 F 03/18/21 11:05 Pulse 80 03/18/21 15:04 Resp 19 03/18/21 15:04 BP 148/97 H 03/18/21 15:04 Pulse Ox 100 03/18/21 15:04 BMI result Body Mass Index 28.7 Neuro: Sensory Exam: No Sensory deficit (Neuro) Course Reevaluation(s) Reevaluation #1: NGT lavage negative for blood, my impression is Shayy Miller will start protonix and dc home Time: 16:14 MDM - Nausea/Vomiting/Diarrhea Lab Data Result diagrams: 03/18/21 11:14 03/18/21 11:14 Labs: Lab Results 03/18/21 03/18/21 Range/Units 11:14 11:14 WBC 12.1 H (4.8-10.8) X10*3/uL RBC 5.20 (4.60-5.80) X10*6/uL Hgb 14.9 (14.0-18.0) g/dl Hct 44.1 (42.0-52.0) % MCV 84.8 (80.0-98.0) fL MCH 28.7 (27.0-33.0) pg MCHC 33.8 (31.0-36.0) g/dl RDW 12.3 (11.0-16.0) % Plt Count 223 (160-400) X10*3/uL MPV 10.6 (9.4-12.4) fL Immature Gran % (Auto) 0.5 H (0.0-0.4) % Neut % (Auto) 75.0 H (45-73) % Lymph % (Auto) 13.7 L (20-40) % [place] % (Auto) 9.4 (2-11) % Eos % (Auto) 1.2 (0-4) % Baso % (Auto) 0.2 (0-2) % Lymph # (Auto) 1.7 (1.2-4.9) X10*3/uL [place] # (Auto) 1.1 (0.1-1.2) X10*3/uL Eos # (Auto) 0.2 (0.0-0.4) X10*3/uL Baso # (Auto) 0.0 (0.0-0.2) X10*3/uL Abs Immat Gran (auto) 0.06 H (0.00-0.03) X10*3/uL Absolute Neuts (auto) 9.0 H (2.0-8.3) x10*3/uL Absolute Nucleated RBC 0.000 (0.0-0.012) X10*3/uL Nucleated RBC % (auto) 0.0 (0.0-0.2) /100WBC Sodium 139 (135-145) mmol/L Potassium 4.6 (3.3-5.1) mmol/L Chloride 104 (96-108) mmol/L Carbon Dioxide 25 (22-29) mmol/L Anion Gap 15 (12-20) BUN 13 (9-16) mg/dL Creatinine 0.92 (0.5-1.4) mg/dL Estim Creat Clear Calc 138.6 Estimated GFR > 60 Random Glucose 105 (60-115) mg/dL Calcium 9.8 (8.4-10.2) mg/dL Total Bilirubin 1.0 (0.0-1.0) mg/dL Direct Bilirubin 0.4 (0.0-0.5) mg/dL AST 19 (5-37) U/L ALT 26 (0-40) U/L Alkaline Phosphatase 89 (39-117) U/L Total Protein 7.1 (6.5-8.0) g/dL Albumin 4.4 (3.5-5.0) g/dL Lipase 8 (8-78) U/L Discharge Plan Discharge Clinical Impression: Colitis, Shayy-Miller syndrome Patient Disposition: Home, Self-Care Instructions: Colitis (ED), Shayy-Miller Syndrome (ED) Prescriptions: New pantoprazole [Protonix] 40 mg tablet,delayed release (DR/EC) 40 mg PO DAILY Qty: 20 RF: 0 No Action metronidazole 500 mg tablet 500 mg PO BID Qty: 20 RF: 0 ciprofloxacin HCl [Cipro] 500 mg tablet 500 mg PO BID Qty: 20 RF: 0 tramadol 50 mg tablet 50 mg PO Q6H PRN (Reason: pain) Qty: 20 RF: 0 ondansetron 4 mg tablet,disintegrating 4 mg PO Q6-8H PRN (Reason: nausea and vomiting) Qty: 7 RF: 0 Referrals: Thee Shipman MD [Primary Care Provider] - 5 days
[2021-03-18] MEDS: Lidocaine HCl 4 % Laryng-O-Jet 4 ML 1 APPL TOPICAL (15:01)
[2021-03-18 15:04] VITALS: BP 148/97; PULSE 80; RESP 19; O2SAT 100
[2021-03-18 16:09] LABS: Appearance Urine CLEAR; Color Urine YELLOW; Glucose Urine UA NEG (NEG); Leukocyte Esterase Urine NEG (NEG); Nitrite Urine NEG (NEG); Specific Gravity - Urine 1.025 (1.005-1.025); Urine Blood NEG (NEG); Urine Ketones 40 MG/DL (NEG); Urine Protein NEG (NEG-TRACE)
--- NOTE | 2021-03-18 16:30 | PC.NURSE ---
Pt alert and oriented x4, calm and cooperative. 16 Maltese NG tube in left nare inserted, 200ml of clear watery drainage from NG tube noted, MD Ortiz aware. Per MD Ortiz NG tube removed and patient tolerated well. Pt states 3/10 LLQ abd pain. Pt denies nausea/vomiting at this time. Pt drank PO water and tolerated well. No IV in place. Vitals stable. Pt to be discharged. Pt and significant other stated an understanding and ambulated out to private car without issues.
== END 2021-03-18 16:41 | disposition home or self-care (01) ==
PROVIDERS: Emergency Provider Emergency Medicine; PCP Internal Medicine Sports Medicine
DX: K22.6 Gastro-esophageal laceration-hemorrhage syndrome (principal); K52.9 Noninfective gastroenteritis and colitis, unspecified; Z79.899 Other long term (current) drug therapy
CPT/HCPCS: 36415; 80048; 80076; 81003; 83690; 85025; 99284

== ENCOUNTER 2021-03-25 10:58 | Outpatient (REF) | payer OTHER, SELFPAY ==
[2021-03-25 12:15] LABS: MANUAL DIFF FLAG NO
[2021-03-25 12:36] LABS: Basophils Percent Auto 0.3 % (0-2); Eosinophils Absolute Auto 0.2 X10*3/uL (0.0-0.4); Eosinophils Percent Auto 2.4 % (0-4); Hematocrit 45.5 % (42.0-52.0); Hemoglobin 15.3 g/dl (14.0-18.0); Imm Gran Abs Auto 0.05 X10*3/uL (0.00-0.03); Imm Gran Pct Auto 0.6 % (0.0-0.4); Lymphocytes Absolute Auto 1.7 X10*3/uL (1.2-4.9); Lymphocytes Percent Auto 21.9 % (20-40); Mean Corpuscular HGB Conc 33.6 g/dl (31.0-36.0); Mean Corpuscular Hemoglobin 28.3 pg (27.0-33.0); Mean Corpuscular Volume 84.1 fL (80.0-98.0); Mean Platelet Volume 11.1 fL (9.4-12.4); Monocytes Absolute Auto 0.6 X10*3/uL (0.1-1.2); Monocytes Percent Auto 8.1 % (2-11); Neutrophils Absolute Auto 5.3 x10*3/uL (2.0-8.3); Neutrophils Percent Auto 66.7 % (45-73); Platelet Count 283 X10*3/uL (160-400); Red Blood Count 5.41 X10*6/uL (4.60-5.80); Red Cell Distribution Width 12.4 % (11.0-16.0); White Blood Count 7.9 X10*3/uL (4.8-10.8)
[2021-03-25 12:59] LABS: C Reactive Protein 0.62 mg/dL (< or = 0.50)
[2021-03-25 13:21] LABS: Ferritin 166 ng/mL (20-250)
== END 2021-03-25 10:59 | disposition home or self-care (01) ==
LOC: HO.LAB 10:58
PROVIDERS: PCP Internal Medicine Sports Medicine; Visit Provider Internal Medicine Gastroenterology
DX: K52.9 Noninfective gastroenteritis and colitis, unspecified (principal)
CPT/HCPCS: 36415; 82728; 85025; 86140

== ENCOUNTER 2021-04-04 09:01 | Day surgery (SDC) | payer OTHER, SELFPAY ==
--- NOTE | 2021-04-03 12:07 | HO.ANESPROP2 ---
Documented by User: Cathy Romero NP 04/03/21 12:08 HPI - Anesthesia Eval Consult details Narrative: 30yo M for Colonoscopy [facility] Active Problems Active Problems: All Active Problems (Updated 03/25/21 @ 11:52 by Juan Fisher MD) Colitis (Acute) Acute viral syndrome (Acute) Itching of ear (Acute) Blockage of ear (Acute) Hypertension (Acute) Chest pain (Acute) Palpitations (Acute) Past Medical History Medical History Compartment syndrome of right lower extremity Family History Family History Mother HTN (hypertension) MVP (mitral valve prolapse) Diabetes Father Diabetes HTN (hypertension) Maternal Grandfather Heart attack CAD (coronary artery disease) Surgical History Surgical History H/O removal of cyst Social History Social History Alcohol intake: current Patient Tobacco Use Status: Never used Tobacco Use of substances other than those prescribed or required for medical reasons: No Are you DNR?: No Advance Directives: No Advance Directives Information Provided: Yes Meds Allergies Allergy/AdvReac Type Severity Reaction Status Date / Time SEASONAL ALLERGIES Allergy Unknown RUNNY Uncoded 03/25/21 11:02 NOSE, WATERY EYES Exam Exam Date and Time: April 03, 2021 1207 Pertinent Lab Results Pertinent Lab Results: Laboratory Tests 03/18/21 03/25/21 11:14 12:13 WBC 7.9 Hgb 15.3 Hct 45.5 Plt Count 283 D Sodium 139 Potassium 4.6 Chloride 104 Carbon Dioxide 25 BUN 13 Creatinine 0.92 Assessment and Plan Assessment Anesthesia Assessment: Chart Reviewed Documented by User: Arya Davidson 04/04/21 09:39 [facility] Past Medical History Medical History Compartment syndrome of right lower extremity Functional capacity: independent ambulation Family History Family History Mother HTN (hypertension) MVP (mitral valve prolapse) Diabetes Father Diabetes HTN (hypertension) Maternal Grandfather Heart attack CAD (coronary artery disease) Family history of problems with anesthesia: No Surgical History Surgical History H/O removal of cyst History of Problems with Anesthesia: No Social History Social History Alcohol intake: current Patient Tobacco Use Status: Never used Tobacco Use of substances other than those prescribed or required for medical reasons: No Are you DNR?: No Advance Directives: No Advance Directives Information Provided: Yes Meds Allergies Allergy/AdvReac Type Severity Reaction Status Date / Time SEASONAL ALLERGIES Allergy Unknown RUNNY Uncoded 03/25/21 11:02 NOSE, WATERY EYES Exam Airway Mallampati Class: II TM Dist: >3cm Neck ROM: Full Loose/Missing/Broken Teeth: Yes (Chipped teeth ) Heart: rrr Lungs: bl breath sounds Assessment and Plan Final Anesthetic Review Family History of Problems with Anesthesia: No History of Problems with Anesthesia: No NPO: Yes ASA Class: II Final Preanesthetic Review: Meds/Allgs Chart Reviewed and Anes Risks/Benef Reviewed Patient Risk: Intermediate Procedure Risk: Intermediate Anesthetic Plan Anesthetic Plan: MAC: Disposition: Standard PACU
[2021-04-04 09:26] VITALS: BP 144/103; PULSE 80; RESP 16; TEMP 36.3; O2SAT 97; BMI 28.7
[2021-04-04] MEDS: Lactated Ringers 1,000 ML 100 ML IVCONT (09:33)
--- NOTE | 2021-04-04 09:37 | P.BOP_ITS ---
Brief Operative Note Date of Service: 04/04/21 Pre-op diagnosis: hx of colitis Post-op diagnosis: same Procedure: see op note Surgeon: Juan Fisher MD Anesthesia: MAC Was an [employer] L[employer] Grader used for this Procedure?: No Estimated blood loss (mL): 0 Condition: stable Disposition: PACU
--- NOTE | 2021-04-04 09:37 | MHC.SHP ---
Pre-Procedural Eval Section A Date of Service: 04/04/21 The patient is an INPATIENT: No The History & Physical has been completed within 30 days and I have reviewed it.: Yes Section B Chief Complaint: gastroenteritis and colitis Allergies: Allergies Allergy/AdvReac Type Severity Reaction Status Date / Time SEASONAL ALLERGIES Allergy Unknown RUNNY Uncoded 03/25/21 11:02 NOSE, WATERY EYES Plan Diagnosis/Plan: Unchanged I have reviewed the history and physical and performed a pertinent physical examination on my patient. No changes have occurred unless specified.
--- NOTE | 2021-04-04 09:38 | W.PM.OPN ---
Operative Note Operative Note Date of Service: 04/04/21 Narrative: Operative Information Procedure Description: Colonoscopy COLONOSCOPY Instrument: Olympus variable stiffness pediatric scope 190L Colonoscopy Monitoring: Vital signs and clinical assessment, continuous EKG monitoring, Pulse oximetry, Carbon Dioxide monitoring and blood pressure monitoring were done throughout the procedure. Colon withdrawal time was 12 minutes. Procedure: The patient was placed in the left lateral decubitis position and pre-procedure medications were administered. After a digital rectal examination of the ano-rectum, the video colonoscope was inserted into the rectum and advanced through the colon to the cecum/TI. The colonoscope was slowly withdrawn in a retrograde panoramic fashion and the colon mucosa was carefully examined including a retroflexed view of the rectum. Findings and interventions are described below. Procedure Difficulty: easy Findings: Terminal Ileum-normal, bx taken bx taken from right, left and rectum in separate jars Cecum:normal Ascending Colon: normal Transverse Colon -normal Descending Colon:normal Sigmoid Colon: mild patchy erythema, scattered small diverticula noted Rectum: Retroflexion with small internal hemorrhoids, grade II Anorectum - internal hemorrhoids seen at anal verge Colon preparation: Beverly Bowel Preparation Scale Right colon; 2 Transverse colon: 3 Left colon; 3 (0 = Unprepared colon segment with mucosa not seen due to solid stool that cannot be cleared. 1 = Portion of mucosa of the colon segment seen, but other areas of the colon segment not well seen due to staining, residual stool and/or opaque liquid. 2 = Minor amount of residual staining, small fragments of stool and/or opaque liquid, but mucosa of colon segment seen well. 3 = Entire mucosa of colon segment seen well with no residual staining, small fragments of stool or opaque liquid) Impression and Post Procedure Diagnosis: internal hemorrhoids diverticular disease Plan: High fiber diet leaflet Avoid straining at stool, epsom salts and sitz bath, anusol supps or cream Repeat Colonoscopy aged 45 or earlier if clinically indicated Above findings were reviewed with the patient and relevant handouts were provided if indicated.
[2021-04-04 10:21] VITALS: BP 108/68; PULSE 91; RESP 15; TEMP 36.8; O2SAT 98
[2021-04-04 10:36] VITALS: BP 118/74; PULSE 91; RESP 18; TEMP 36.8; O2SAT 99
== END 2021-04-04 11:11 | disposition home or self-care (01) ==
PROVIDERS: PCP Internal Medicine Sports Medicine; Visit Provider Internal Medicine Gastroenterology
PROC: 0DJD8ZZ Inspection of Lower Intestinal Tract, Via Natural or Artificial Opening Endoscopic (ICD-10-PCS; CPT 45378; principal; 2021-04-04 10:20)
DX: K52.9 Noninfective gastroenteritis and colitis, unspecified (principal); J30.2 Other seasonal allergic rhinitis; K57.30 Diverticulosis of large intestine without perforation or abscess without bleeding; K64.1 Second degree hemorrhoids
CPT/HCPCS: 45380; 88305

== ENCOUNTER → 2021-06-12 15:55 | Outpatient (REF) | payer OTHER, SELFPAY | LOC: HO.SL 15:55 | PROVIDERS: PCP Nurse Practitioner Family; Visit Provider Nurse Practitioner Family | DX: G47.30 Sleep apnea, unspecified (principal) | CPT/HCPCS: 95806 ==

== ENCOUNTER 2022-02-10 14:19 | Outpatient (REF) | payer OTHER, SELFPAY ==
[2022-02-10 15:08] LABS: Influenza A PCR NEGATIVE (Negative); Influenza B PCR NEGATIVE (Negative); Resp Syncy Virus RNA Qual PCR NEGATIVE (Negative); SARS COV2 PCR INHOUSE NEGATIVE (Negative)
== END 2022-02-10 14:20 | disposition home or self-care (01) ==
LOC: HO.LNP 14:19
PROVIDERS: Visit Provider Nurse Practitioner Family
DX: Z20.822 Contact with and (suspected) exposure to COVID-19 (principal); J06.9 Acute upper respiratory infection, unspecified
CPT/HCPCS: 0241U

== ENCOUNTER 2022-09-26 07:11 | Outpatient (REF) | payer OTHER, SELFPAY ==
[2022-09-26 08:37] LABS: Hematocrit 45.9 % (42.0-52.0); Hemoglobin 15.3 g/dl (14.0-18.0); Mean Corpuscular HGB Conc 33.3 g/dl (31.0-36.0); Mean Corpuscular Hemoglobin 28.4 pg (27.0-33.0); Mean Corpuscular Volume 85.2 fL (80.0-98.0); Platelet Count 214 X10*3/uL (160-400); Red Blood Count 5.39 X10*6/uL (4.60-5.80); Red Cell Distribution Width 12.6 % (11.0-16.0); White Blood Count 9.6 X10*3/uL (4.8-10.8)
[2022-09-26 09:09] LABS: Alanine Aminotransferase 37 U/L (0-40); Albumin Level 4.3 g/dL (3.5-5.0); Alkaline Phosphatase 87 U/L (39-117); Anion Gap 12 (12-20); Aspartate Amino Transferase 23 U/L (5-37); Bilirubin Total 0.5 mg/dL (0.0-1.0); Blood Urea Nitrogen 16 mg/dL (9-16); Calcium 9.5 mg/dL (8.4-10.2); Carbon Dioxide 27 mmol/L (22-29); Chloride 106 mmol/L (96-108); Estimated Glomerular Filt Rate > 60; Glucose Fasting 91 mg/dL (60-99); Potassium 3.9 mmol/L (3.3-5.1); Sodium 141 mmol/L (135-145); Total Protein 7.2 g/dL (6.5-8.0)
== END 2022-09-26 07:12 | disposition home or self-care (01) ==
LOC: HO.LAB 07:11
PROVIDERS: PCP Physician Assistant; Visit Provider Physician Assistant
DX: I10 Essential (primary) hypertension (principal)
CPT/HCPCS: 36415; 80053; 85027

== ENCOUNTER 2023-01-27 08:38 | Outpatient (AMB) | payer OTHER, SELFPAY ==
[2023-01-27 08:44] VITALS: BP 130/72; PULSE 86; TEMP 36.4; O2SAT 96; BMI 29.6
--- NOTE | 2023-01-27 08:44 | MHC.OFFWIV ---
Intake Vital Signs 01/27/23 08:44 Height 6 ft Weight 218 lb 2 oz BMI 29.6 BP 130/72 Blood Pressure Location Rt brachial Position Sitting Pulse 86 Pulse Source Pulse Oximeter Temp 97.6 F Temp Source Temporal Artery Scan Pulse Oximetry (%) 96 Oxygen Delivery Method Room Air Intake Visit Reasons: Ep, cough, congestion, sore throat(masked) Intake Note: pt is here for c/o cough, congestion, and sore throat Patient Tobacco Use Status: Never used Tobacco Allergies metoprolol Adverse Reaction (Intermediate, Verified 01/27/23 09:08) Fatigued SEASONAL ALLERGIES Allergy (Unknown, Uncoded 01/27/23 09:08) RUNNY NOSE, WATERY EYES Medication List - Last Reconciled 01/27/23 by Davis Wu MD clindamycin phosphate 1% topical DAILY PRN hydrochlorothiazide 12.5 mg PO DAILY 30 days miscellaneous medical supply (Blood Pressure Cuff) As directed Do you need a note to return to daycare/school/sports/work: Yes HPI Ep, cough, congestion, sore throat(masked) HPI Details Patient presents for a sick visit. Reporting symptoms of sinus congestion, sore throat and difficulty swallowing. Low-grade fever. No family member is sick. No recent travel. Patient reports symptoms of malaise and fatigue. [facility] Medical History Colitis Compartment syndrome of right lower extremity History of COVID-19 (~11/2020) History of Owen de la Tourette's syndrome Surgical History H/O removal of cyst History of colonoscopy Family History Mother HTN (hypertension) MVP (mitral valve prolapse) Diabetes Father Diabetes HTN (hypertension) Substance use disorder Maternal Grandfather Heart attack CAD (coronary artery disease) Paternal Grandfather Skin cancer, Onset Age: 80 Bladder cancer Social History Housing: House Alcohol intake: current Alcohol intake frequency: holidays/special occasions only Patient Tobacco Use Status: Never used Tobacco e-Cigarette/Vaping Use: Never Used Second Hand Smoke Exposure: No service: No Current occupational status: employed 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 Cognitive needs: No Hearing needs: No Vision needs: Yes (Glasses/Contacts) Physical Exam Vital Signs: Last Vital Signs Temp 97.6 F 01/27/23 08:44 Pulse 86 01/27/23 08:44 BP 130/72 01/27/23 08:44 Pulse Ox 96 01/27/23 08:44 Oxygen Delivery Method Room Air 01/27/23 08:44 BMI result Body Mass Index 29.6 Const General: cooperative and healthy appearing Nutritional Appearance: well nourished Orientation/consciousness: patient oriented x3 Limitations: no limitations HEENT Head: Yes normal to inspection Eyes General: appearance normal, both eyes and all related structures Neck Neck: Yes normal visual inspection Chest Chest palpation & inspection: normal palpation of entire chest wall Resp Effort & Inspection: normal respiratory effort Neuro General: patient oriented x3 Results AMB Rapid Strep AMB Rapid Strep Negative Last Edit by Shelley Tomlin CMA on 01/27/23 09:00 Results Reviewed Results Reviewed: Laboratory Last Values Strep Scn Rapid Clinic Negative 01/27/23 08:59 Assessment & Plan Assessment & Plan (1) Upper respiratory tract infection: Code(s): J06.9 - Acute upper respiratory infection, unspecified Plan: Antibiotics ordered. Increase fluid intake. Tylenol for aches and pains. If symptoms worsen, follow-up here for a recheck. Orders: Orders AMB Rapid Strep Screen Today Z13.9 - Encounter for screening, unspecified Coding Level of Care Code Est Pt Level 3 (96372) Diagnoses Upper respiratory tract infection J06.9
== END 2023-01-27 09:22 | disposition home or self-care (01) ==
PROVIDERS: PCP Physician Assistant; Visit Provider Internal Medicine
DX: J06.9 Acute upper respiratory infection, unspecified (principal); J02.9 Acute pharyngitis, unspecified
CPT/HCPCS: 87880; 99213

== ENCOUNTER 2023-02-13 12:48 | Outpatient (REF) | payer OTHER, SELFPAY ==
--- NOTE | ~2023-02-13 | XR_ITS ---
EXAMINATION: XR CHEST CLINICAL INFORMATION: Cough for 4 weeks, shortness of breath and wheezing COMPARISON: 07/18/2020 TECHNIQUE: 2 views of the chest were obtained. FINDINGS: No significant abnormality is noted involving the heart, lungs, mediastinum, bony thorax or soft tissues. XR/XR chest 2V IMPRESSION: Unremarkable examination.
== END 2023-02-13 12:49 | disposition home or self-care (01) ==
LOC: HO.XRAY 12:48
PROVIDERS: PCP Physician Assistant; Visit Provider Physician Assistant
DX: J06.9 Acute upper respiratory infection, unspecified (principal)
CPT/HCPCS: 71046

== ENCOUNTER 2023-04-24 09:08 | Outpatient (AMB) | payer OTHER, SELFPAY ==
[2023-04-24 09:14] VITALS: BP 152/100; PULSE 97; TEMP 36.3; O2SAT 97; BMI 29.2
--- NOTE | 2023-04-24 09:14 | AM.OFFWIN_ITS ---
Intake Vital Signs 04/24/23 09:14 Height 6 ft Weight 215 lb BMI 29.2 BP 152/100 H Blood Pressure Location Lt brachial Position Sitting Pulse 97 Pulse Source Pulse Oximeter Temp 97.4 F Pulse Oximetry (%) 97 Oxygen Delivery Method Room Air Intake Visit Reasons: EP, headache, chills, congestion ([phone]) Intake Note: pt is here today for headache chills congestion started since january Patient Tobacco Use Status: Never used Tobacco Allergies metoprolol Adverse Reaction (Intermediate, Verified 04/24/23 09:15) Fatigued SEASONAL ALLERGIES Allergy (Unknown, Uncoded 01/27/23 09:08) RUNNY NOSE, WATERY EYES Do you need a note to return to daycare/school/sports/work: No HPI HPI Comments History of Present Illness Details This is a 32-year-old male who presented to the office complaining of waxing and waning URI symptoms x3 months. Patient states he has been having low-grade fever/chills, congestion/rhinorrhea, nasal/sinus congestion, headaches, and fatigue for the past 3 months. He states that the symptoms wax and wane in severity but never completely go away. He was seen here in 01/2023 and he was given a Z-Maxx. He states his symptoms improved for a few days but never went away. He reports a history of seasonal allergies, which usually occur in the spring time. He denies any new exposures prior to his symptom onset. Patient has been using [id number] medications such as Mucinex, DayQuil/NyQuil, Tylenol/Advil. [facility] Medical History Colitis Compartment syndrome of right lower extremity History of COVID-19 (~11/2020) History of Owen de la Tourette's syndrome Surgical History H/O removal of cyst History of colonoscopy Family History Mother HTN (hypertension) MVP (mitral valve prolapse) Diabetes Father Diabetes HTN (hypertension) Substance use disorder Maternal Grandfather Heart attack CAD (coronary artery disease) Paternal Grandfather Skin cancer, Onset Age: 80 Bladder cancer Social History Housing: House Alcohol intake: current Alcohol intake frequency: holidays/special occasions only Patient Tobacco Use Status: Never used Tobacco e-Cigarette/Vaping Use: Never Used Second Hand Smoke Exposure: No service: No Current occupational status: employed 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 Cognitive needs: No Hearing needs: No Vision needs: Yes (Glasses/Contacts) Review of Systems Const All systems reviewed & are unremarkable except as noted in HPI and below Reports no additional complaints Eyes Reports no additional complaints ENT Reports no additional complaints Card Reports no additional complaints Resp Reports no additional complaints GI Reports no additional complaints Reports no additional complaints Musc Reports no additional complaints Skin/Breast Reports system reviewed and no additional complaints, except as documented Neuro Reports no additional complaints Psych Reports no additional complaints Endo Reports no additional complaints Dilshad/Lymph Reports no additional complaints Aller/Immun Reports no additional complaints Physical Exam Vital Signs: Last Vital Signs Temp 97.4 F 04/24/23 09:14 Pulse 97 04/24/23 09:14 BP 152/100 H 04/24/23 09:14 Pulse Ox 97 04/24/23 09:14 Oxygen Delivery Method Room Air 04/24/23 09:14 BMI result Body Mass Index 29.2 Const Other: Vital signs reviewed. Constitutional: Non-toxic appearing. No acute distress. Well-developed and well-nourished. HEENT: Normocephalic and atraumatic. Skin: Warm and dry. No rashes or lesions noted. Neck: Full and painless range of motion. No cervical lymphadenopathy. Cardio: Regular rate. No lower extremity edema. No JVD. Pulmonary: No respiratory distress. No accessory muscle usage. Gastrointestinal: Soft, nontender, and nondistended in all 4 quadrants. Musculoskeletal: Normal range of motion in joints throughout the body. No deformity or other signs of injury. Neuro: Alert and oriented x4. Cranial nerves 2-12 grossly intact. No focal deficits appreciated. Psych: Normal mood and affect. Assessment & Plan Assessment & Plan (1) Upper respiratory tract infection: Code(s): J06.9 - Acute upper respiratory infection, unspecified Qualifiers: URI type: acute nasopharyngitis (common cold) Qualified Code(s): J00 - Acute nasopharyngitis [common cold] Plan: This is a 32-year-old male who presented to the office complaining of waxing and waning viral URI symptoms x 3 months. Given waxing and waning viral URI symptoms, it is possible that patient has had multiple viral URIs caused by different viruses. It is also possible that patient has acute bacterial rhinosinusitis given intermittent worsening of his symptoms as well as green- yellow nasal discharge and low-grade fevers. I sent a prescription for p.o. amoxicillin/clavulanate 875/125 mg twice daily x7 days to treat acute bacterial rhinosinusitis. I also recommended to continue using cafg-mlm-xehzhba medication such as guaifenesin, pseudoephedrine/phenylephrine, acetaminophen/ibuprofen, cepacoll throat lozenges, etc. The patient also requeted to be tested for Lyme given his fatigue over the past 3 months so this was ordered and CC'ed to his primary care physician. Patient was advised to follow-up here or proceed to the emergency room for persistent or worsening symptoms. Patient verbalized understanding and is agreeable with the plan. (2) Hypertension: Code(s): I10 - Essential (primary) hypertension Qualifiers: Hypertension type: primary hypertension Qualified Code(s): I10 - Asif nieto (primary) hypertension Plan: Patient was found to be hypertensive with a blood pressure 152/100 in the office today. He is asymptomatic without chest pain or shortness of breath or headache or visual disturbances. Patient states he did not take his blood pressure medication this morning as he woke up and came straight to the walk-in clinic. I recommended he take his blood pressure medication as soon as he gets home. Patient verbalizes understanding and he is in agreement with the plan. He will monitor his blood pressures at home. Orders: Orders SARS-CoV2/FLU/RSV Today R09.89 - Other specified symptoms and signs involving the circulatory and respiratory systems Lyme IgG/IgM w/reflex to WB Today R53.83 - Other fatigue Medications: New amoxicillin-pot clavulanate 875-125 mg 1 tab PO BID 14 tabs 0RF Coding Level of Care Code Est Pt Level 3 (74164) Diagnoses Acute nasopharyngitis J00 URI type: acute nasopharyngitis (common cold) Primary hypertension I10 Hypertension type: primary hypertension
== END 2023-04-24 09:57 | disposition home or self-care (01) ==
PROVIDERS: PCP Physician Assistant; Visit Provider Physician Assistant Medical
DX: J00 Acute nasopharyngitis [common cold] (principal); I10 Essential (primary) hypertension
CPT/HCPCS: 99213

== ENCOUNTER 2023-04-24 09:44 | Outpatient (REF) | payer OTHER, SELFPAY ==
[2023-04-24 12:43] LABS: Influenza A PCR NEGATIVE (Negative); Influenza B PCR NEGATIVE (Negative); Resp Syncy Virus RNA Qual PCR NEGATIVE (Negative); SARS COV2 PCR INHOUSE NEGATIVE (Negative)
[2023-04-27 21:33] LABS: Lyme Abs Screen <0.90 index
== END 2023-04-24 09:45 | disposition home or self-care (01) ==
LOC: HO.HMGCLDS 09:44
PROVIDERS: PCP Physician Assistant; Visit Provider Physician Assistant Medical
DX: Z11.52 Encounter for screening for COVID-19 (principal); Z20.822 Contact with and (suspected) exposure to COVID-19; R53.83 Other fatigue; R09.89 Other specified symptoms and signs involving the circulatory and respiratory systems
CPT/HCPCS: 0241U; 36415; 86617; 86618

== ENCOUNTER 2023-07-09 10:29 | Outpatient (AMB) | payer OTHER, SELFPAY ==
[2023-07-09 10:47] VITALS: BP 158/96; PULSE 72; RESP 16; O2SAT 98; BMI 28.0
--- NOTE | 2023-07-09 10:47 | MHC.PC.OV ---
Vital Signs 07/09/23 10:47 Height 6 ft Weight 206 lb 4 oz BMI 28.0 BP 158/96 H Blood Pressure Location Lt brachial Position Sitting Respiration 16 Pulse 72 Pulse Source Pulse Oximeter Pulse Oximetry (%) 98 Oxygen Delivery Method Room Air Intake Visit Reasons: ongoing cough,sinus Receivable Executive Required: No Accompanied by: Self / Same As Patient Allergies metoprolol Adverse Reaction (Intermediate, Verified 04/24/23 09:15) Fatigued SEASONAL ALLERGIES Allergy (Unknown, Uncoded 01/27/23 09:08) RUNNY NOSE, WATERY EYES Tobacco use date assessed: 09/30/22 HPI ongoing cough,sinus HPI Details Patient is a 32-year-old male here today for problem visit. Has been having an ongoing cough and sinus issues over the last few months. Been on various different antibiotics and steroid tapers all without sustained relief. He has been dealing with this cough worse in the morning that is fairly productive of yellowish-green sputum over the last 6 months. He has gotten his home health aide caregiver for mole though does not have any mold in his home. He does report having COVID in March of 2022 and wonders if this has anything to do with his cough. Hypertension: Blood pressure today in office elevated, has been elevated at previous other office visits. Will increase his hydrochlorothiazide to 25 mg for better blood pressure control. He does admit to having a little bit more stress at home due to marital issues. Advised to monitor blood pressure closely at home . [facility] Medical History Colitis Compartment syndrome of right lower extremity History of COVID-19 (~11/2020) History of Owen de la Tourette's syndrome Surgical History History of colonoscopy H/O removal of cyst Family History Mother HTN (hypertension) MVP (mitral valve prolapse) Diabetes Father Diabetes HTN (hypertension) Substance use disorder Maternal Grandfather Heart attack CAD (coronary artery disease) Paternal Grandfather Skin cancer, Onset Age: 80 Bladder cancer Social History Housing: House Alcohol intake: current Alcohol intake frequency: holidays/special occasions only Patient Tobacco Use Status: Never used Tobacco e-Cigarette/Vaping Use: Never Used Second Hand Smoke Exposure: No service: No Current occupational status: employed 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 1. Little interest or pleasure in doing things: not at all 2. Feeling down, depressed, or hopeless: not at all 3. Trouble falling or staying asleep, or sleeping too much: not at all 4. Feeling tired or having little energy: not at all 5. Poor appetite or overeating: not at all 6. Feeling bad about yourself - or that you are a failure or have let yourself or your family down: not at all 7. Trouble concentrating on things, such as reading the newspaper or watching television: not at all 8. Moving or speaking so slowly that other people could have noticed. Or the opposite - being so fidgety or restless that you have been moving around a lot more than usual: not at all 9. Thoughts that you would be better off or of hurting yourself in some way: not at all Total score: 0 Depression Screening Interpretation: Negative Depression Screening Done: Yes 85421 - PHQ-9 Billing: Yes Source: Developed by Drs. Eugene Birmingham, Ashly Smith, Adonay Wynn and colleagues, with an educational juanis from [employer]. Thrive Questionnaire Date Thrive assessed: 07/09/23 I am a: Patient What is your living situation today?: I have a steady place to live Within the past 12 months, did the food you bought not last and you didn't have the money to get more?: Never true Within the past 12 months, did you worry whether your food would run out before you got money to buy more?: Never true Do you have trouble paying for medicines?: No Do you have trouble getting transportation to medical appointments?: No Do you have trouble paying your heating and electricity bill?: No Do you have trouble taking care of your child, family member or friend?: No Do you have trouble with day-to-day activities such as bathing, preparing meals, shopping, managing finances, etc.?: No Are you currently unemployed and looking for a job?: No Are you interested in more education?: No Please select the resources that you would like help with: None Currently or been in a relationship where the following occur: no concerns reported THRIVE Score: 0 AUDIT C Alcohol Use Questionnaire (AUDIT-C) 1. How often do you have a drink containing alcohol?: Monthly or less 2. How many drinks containing alcohol do you have on a typical day when you are drinking?: 1 or 2 3. How often do you have six or more drinks on one occasion?: Never Total Score: 1 ARI-7 AMB Questionnaire ARI-7 Date ARI - 7 assessed: 07/09/23 Feeling nervous, anxious, or on edge: 2 = More than half the days Not being able to stop or control worryin = Several days Worrying too much about different things: 2 = More than half the days Trouble relaxin = More than half the days Being so restless that it is hard to sit still: 1 = Several days Becoming easily annoyed or irritable: 1 = Several days Feeling afraid as if something awful might happen: 1 = Several days Total ARI-7 score (0-4 normal; 5-9 mild; 10-14 moderate; 15-21 severe): 10 Source: Developed by Drs. Eugene Birmingham, Ashly Smith, Adonay Wynn and colleagues, with an educational juanis from [employer]. ARI-7 Assessment Billing ARI-7 Assessment Tool: ARI-7 Assessment 25548 Review of Systems Const Denies headache(s) Eyes Denies loss of vision ENT Denies vertigo, Denies dizziness, Denies headache(s) and Denies sore throat Card Denies chest pain, Denies leg edema and Denies lightheadedness Resp Denies cough, Denies hemoptysis and Denies wheezing GI Denies abdominal pain, Denies melena, Denies constipation, Denies diarrhea and Denies vomiting Denies dysuria, Denies urinary frequency and Denies urinary urgency Musc Denies arthralgias, Denies joint swelling, Denies numbness and Denies tingling Neuro Denies Abnormal speech present, Denies behavioral changes, Denies vertigo, Denies dizziness, Denies headache(s), Denies loss of vision, Denies memory loss, Denies numbness and Denies tingling Psych Denies anxiety, Denies behavioral changes, Denies depression, Denies memory loss and Denies panic attacks Dilshad/Lymph Denies easy bleeding and Denies easy bruising Aller/Immun Denies wheezing Physical exam (Primary Care) Vital Signs: Last Vital Signs Pulse 72 07/09/23 10:47 Resp 16 07/09/23 10:47 BP 158/96 H 07/09/23 10:47 Pulse Ox 98 07/09/23 10:47 Oxygen Delivery Method Room Air 07/09/23 10:47 BMI result Body Mass Index 28.0 Tobacco/Smoking Status: Tobacco use Status Tobacco use date assessed 09/30/22 07/09/23 10:47 Patient Tobacco Use Status Never used Tobacco 07/09/23 10:47 e-Cigarette/Vaping Use Never Used 07/09/23 10:47 PHQ-9: PHQ-9 Score PHQ-9: Total score 0 07/09/23 11:27 Depression Screening Interpretation: Negative Thrive Assessment: Date of Thrive Assessment Date Thrive assessed 07/09/23 07/09/23 10:51 Currently or been in a relationship where the following occur: no concerns reported Const General: healthy appearing, no acute distress, alert and awake Nutritional Appearance: well nourished Orientation/consciousness: oriented to person, oriented to place and oriented to time HENMT Ears: TM's normal bilaterally General nose exam: Normal nasal mucous membranes and turbinates present Eyes Conjunctivae: conjunctivae normal Sclerae: sclerae normal Pupils: Equal, round and reactive pupils present Neck Neck: Yes no lymphadenopathy and Yes no JVD Thyroid: Thyroid normal Carotids: no bruits Resp Other: Occasional dry cough during exam Effort & Inspection: normal respiratory effort, Actively coughing and not tachypneic Auscultation: no crackles, no rales, no rhonchi and no wheezes Cardio Rate: regular rate Rhythm: regular rhythm Heart sounds: no murmurs and normal S1 and S2 GI Palpation (GI): Soft to palpation, nontender, no hepatomegaly and no splenomegaly Auscultation: normal bowel sounds Skin General skin exam: no rashes or lesions noted and dry skin Neuro General: oriented to person, oriented to place and oriented to time Cranial nerves: Yes Equal, round and reactive pupils present Speech: No Abnormal speech present Gait exam (Neuro): Normal gait present Motor exam (neuro): no tremor noted Extrem Right upper extremity: full ROM Left upper extremity: full ROM Right lower extremity: full ROM; no edema Left lower extremity: full ROM; no edema Psych Mental Status: mental status grossly normal Speech and movement: Normal speech and movement present Affect: normal affect Attitude: cooperative Thought process: Normal thought process present Assessment and Plan Assessment & Plan (1) Chronic cough: Code(s): R05.3 - Chronic cough Plan: Patient has had a chronic cough over the last 6 months. He does report in the mornings cough is productive. Has been on various antibiotics and prednisone tapers and cough goal medications all without any significant long-lasting relief. Will send for pulmonary function test, allergen testing, chest x-ray and start maintenance inhaler for possible cough variant asthma. (2) Asthma: Code(s): J45.909 - Unspecified asthma, uncomplicated Qualifiers: Asthma complication type: uncomplicated Asthma persistence: intermittent Asthma severity: mild Qualified Code(s): J45.20 - Mild intermittent asthma, uncomplicated Plan: As above (3) Hypertension: Code(s): I10 - Essential (primary) hypertension Qualifiers: Hypertension type: primary hypertension Qualified Code(s): I10 - Essential (primary) hypertension Plan: Patient's blood pressure elevated today in office. Will increase his hydrochlorothiazide dose for better blood pressure control. Advised to monitor blood pressure with goal blood pressure remain below 140/90. Will follow up with the patient in 6 weeks to evaluate blood pressure readings Orders: Orders PFT pulmonary function test Today J45.20 - Mild intermittent asthma, uncomplicated XR chest 2V Today J45.20 - Mild intermittent asthma, uncomplicated Resp Allergy Profile Region I Today J45.20 - Mild intermittent asthma, uncomplicated, R05.9 - Cough, unspecified IgE Antibody (Anti-IgE IgG) Today J45.20 - Mild intermittent asthma, uncomplicated Medications: New montelukast 10 mg PO BEDTIME 90 days 90 tabs 1RF J45.20 - Mild intermittent asthma, uncomplicated budesonide 90 mcg/actuation 1 inh inhalation BID 30 days 1 ea 1RF J45.20 - Mild intermittent asthma, uncomplicated hydrochlorothiazide 25 mg PO DAILY 30 days 30 tabs 3RF I10 - Essential (primary) hypertension Discontinued hydrochlorothiazide Discontinued Reason: Doctor's Order 12.5 mg PO DAILY 30 days 30 tabs 1RF I10 - Essential (primary) hypertension amoxicillin-pot clavulanate 875-125 mg Discontinued Reason: Doctor's Order 1 tab PO BID 14 tabs 0RF Coding Level of Care Code Est Pt Level 4 (61124) Diagnoses Chronic cough R05.3 Mild intermittent asthma without complication J45.20 Asthma complication type: uncomplicated Asthma persistence: intermittent Asthma severity: mild Primary hypertension I10 Hypertension type: primary hypertension Additional Codes ARI-7 Assessment Billing - ARI-7 Assessment Tool: ARI-7 Assessment [id number] ([id number])
== END 2023-07-09 11:42 | disposition home or self-care (01) ==
PROVIDERS: PCP Physician Assistant; Visit Provider Physician Assistant
DX: R05.3 Chronic cough (principal); J45.20 Mild intermittent asthma, uncomplicated; I10 Essential (primary) hypertension
CPT/HCPCS: 99214

== ENCOUNTER 2023-07-25 09:16 | Outpatient (REF) | payer OTHER, SELFPAY ==
--- NOTE | ~2023-07-25 | XR_ITS ---
EXAMINATION: XR CHEST CLINICAL INFORMATION: Mild intermittent asthma uncomplicated. COMPARISON: 02/13/2023. TECHNIQUE: 2 views of the chest were obtained. FINDINGS: There is no gross pneumothorax. Heart size is normal. Slight rightward curvature of the thoracic spine. No pleural effusion. No focal consolidation to suggest pneumonia. XR/XR chest 2V IMPRESSION: No evidence of pneumonia.
[2023-07-25 10:05] LABS: Hematocrit 45.8 % (42.0-52.0); Hemoglobin 15.4 g/dl (14.0-18.0); Mean Corpuscular HGB Conc 33.6 g/dl (31.0-36.0); Mean Corpuscular Hemoglobin 27.8 pg (27.0-33.0); Mean Corpuscular Volume 82.7 fL (80.0-98.0); Platelet Count 242 X10*3/uL (160-400); Red Blood Count 5.54 X10*6/uL (4.60-5.80); Red Cell Distribution Width 12.8 % (11.0-16.0); White Blood Count 8.5 X10*3/uL (4.8-10.8)
[2023-07-25 11:12] LABS: Alanine Aminotransferase 30 U/L (0-40); Albumin Level 4.5 g/dL (3.5-5.0); Alkaline Phosphatase 101 U/L (39-117); Anion Gap 13 (12-20); Aspartate Amino Transferase 19 U/L (5-37); Bilirubin Total 0.3 mg/dL (0.0-1.0); Blood Urea Nitrogen 12 mg/dL (9-16); Calcium 9.6 mg/dL (8.4-10.2); Carbon Dioxide 25 mmol/L (22-29); Chloride 106 mmol/L (96-108); Estimated Glomerular Filt Rate > 60; Glucose Fasting 117 mg/dL (60-99); Potassium 3.8 mmol/L (3.3-5.1); Sodium 140 mmol/L (135-145); Total Protein 7.5 g/dL (6.5-8.0)
[2023-07-29 23:19] LABS: Class Alternaria alternata 0; Class Aspergillus fumigatus 0; Class Bermuda Grass 2; Class Birch 3; Class Cat Dander 0; Class Cladosporium herbarum 0; Class Cockroach 1; Class Common Ragweed 2; Class Cottonwood 2; Class Derm. pterony 0/1; Class Dermatophagoides farinae 0/1; Class Dog Dander 0; Class Elm 2; Class Maple Box Elder 3; Class Mountain Cedar 1; Class Mouse Urine Protein 0; Class Mugwort 2; Class Oak 4; Class Penicillium crysogenum 0; Class Rough Pigweed 2; Class Sheep Sorrel 2; Class Sycamore 2; Class Timothy Grass 2; Class Walnut Tree 2; Class White Ash 2; Class White Mulberry 0/1; D001 IgE D pteronyssinus 0.22 kU/L; D002 - IgE D farinae 0.19 kU/L; E001 - IgE Cat Dander <0.10 kU/L; E005 - IgE Dog Dander <0.10 kU/L; E072-IgE Mouse Urine <0.10 kU/L; G002 IgE Bermuda Grass 2.75 kU/L; G006 - IgE Timothy Grass 0.97 kU/L; I006-IgE Cockroach, German 0.54 kU/L; Immunoglobulin E 171 kU/L (<OR=114); M001 IgE Penicillium chrysogen <0.10 kU/L; M002 - IgE Cladosporium herbar <0.10 kU/L; M003 - IgE Aspergillus fumigat <0.10 kU/L; M006 - IgE Alternaria alternat <0.10 kU/L; T001 IgE Maple/Box Elder 4.18 kU/L; T006 - IgE Cedar, Mountain 0.45 kU/L; T008 IgE Elm, American 2.01 kU/L; T010 - IgE Walnut 3.14 kU/L; T014 - IgE Cottonwood 2.18 kU/L; T015 - IgE Ash, White 3.31 kU/L; T070 - IgE White Mulberry 0.17 kU/L; W001 - IgE Ragweed, Short 1.61 kU/L; W006 - IgE Mugwort 0.98 kU/L; W014 IgE Pigweed, Common 1.12 kU/L; W018 IgE Sheep Sorrel 2.09 kU/L
[2023-08-06 00:34] LABS: IgE Antibody (Anti-IgE IgG) 25 ng/mL (<168)
== END 2023-07-25 09:17 | disposition home or self-care (01) ==
LOC: HO.LAB 09:16
PROVIDERS: PCP Physician Assistant; Visit Provider Physician Assistant
DX: J45.20 Mild intermittent asthma, uncomplicated (principal); I10 Essential (primary) hypertension; R05.9 Cough, unspecified
CPT/HCPCS: 36415; 71046; 80053; 82785; 83520; 85027; 86003

== ENCOUNTER 2023-10-05 08:31 | Outpatient (AMB) | payer OTHER, SELFPAY ==
--- NOTE | 2023-10-05 08:43 | A.OFFPC_ITS ---
Vital Signs 10/05/23 08:44 Height 6 ft Weight 215 lb 2 oz BMI 29.2 BP 130/90 H Blood Pressure Location Lt brachial Position Sitting Pulse 79 Pulse Source Pulse Oximeter Pulse Oximetry (%) 99 Oxygen Delivery Method Room Air Intake Visit Reasons: f/u BLood pressure Intake Note: Patient is here to follow up on HTN. Talent Acquisition Administrator Required: No Analytical Consultant: Not Required per policy Accompanied by: Self / Same As Patient Allergies metoprolol Adverse Reaction (Intermediate, Verified 10/05/23 09:11) Fatigued SEASONAL ALLERGIES Allergy (Unknown, Uncoded 10/05/23 09:11) RUNNY NOSE, WATERY EYES Medication List - Last Reconciled 10/05/23 by Randy Irwin PA-C albuterol sulfate 90 mcg/actuation 1 inh inhalation QID PRN 30 days budesonide 90 mcg/actuation 1 inh inhalation BID 30 days clindamycin phosphate 1% topical DAILY PRN hydrochlorothiazide 25 mg PO DAILY 30 days miscellaneous medical supply (Blood Pressure Cuff) As directed montelukast 10 mg PO BEDTIME 90 days Tobacco use date assessed: 10/05/23 Dental Screening Dental Screen Date: 10/05/23 Did you have a dental visit in the last 12 months?: Yes Did you have a dental problem in the last 6 months where you did not have access to dental care?: No Was dental information given to patient?: Patient has dentist HPI f/u BLood pressure HPI Details Patient is a 33-year-old male here today for problem visit. Patient has a past medical history significant for hypertension, asthma, allergies. Asthma: Has noted to have significant seasonal allergies. Was started on montelukast which really helped his sinuses and chronic cough. He has been now using his albuterol inhaler on as needed basis Hypertension: Blood pressure today in office slightly elevated, he continues on hydrochlorothiazide 25 mg. He does admit to having a little bit more stress at home due to marital issues. Advised to monitor blood pressure closely at home . Did review his most recent labs and noted elevated fasting blood sugar. Patient admits he was not fasting for the labs and will recheck labs fasting before next visit. Laboratory Tests 07/25/23 09:35 [place] Tree 3.14 H [place] IgE A b 17.20 H [place] All erg 17.90 H [place] IgE A b 2.09 H [facility] Medical History History of Owen de la Tourette's syndrome History of COVID-19 (~11/2020) Colitis Compartment syndrome of right lower extremity Surgical History History of colonoscopy H/O removal of cyst Family History Mother HTN (hypertension) MVP (mitral valve prolapse) Diabetes Father Diabetes HTN (hypertension) Substance use disorder Maternal Grandfather Heart attack CAD (coronary artery disease) Paternal Grandfather Skin cancer, Onset Age: 80 Bladder cancer Social History Housing: House Alcohol intake: current Alcohol intake frequency: holidays/special occasions only Patient Tobacco Use Status: Never used Tobacco e-Cigarette/Vaping Use: Never Used Second Hand Smoke Exposure: No service: No Current occupational status: employed 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 Eugene Birmingham, Ashly Smith, Adonay Wynn and colleagues, with an educational juanis from [employer]. Physical exam (Primary Care) Vital Signs: Last Vital Signs Pulse 79 10/05/23 08:44 BP 130/90 H 10/05/23 08:44 Pulse Ox 99 10/05/23 08:44 Oxygen Delivery Method Room Air 10/05/23 08:44 BMI result Body Mass Index 29.2 Tobacco/Smoking Status: Tobacco use Status Tobacco use date assessed 10/05/23 10/05/23 08:49 Patient Tobacco Use Status Never used Tobacco 10/05/23 08:49 e-Cigarette/Vaping Use Never Used 10/05/23 08:49 Thrive Assessment: Date of Thrive Assessment Date Thrive assessed 07/09/23 10/05/23 08:49 Assessment and Plan Assessment & Plan (1) Hypertension: Code(s): I10 - Essential (primary) hypertension Qualifiers: Hypertension type: primary hypertension Qualified Code(s): I10 - Essential (primary) hypertension Plan: Patient's blood pressure improved today in office.. Will continue hydrochlorothiazide 25 mg daily. He will continue monitoring his blood pressure at home and continue lifestyle and dietary modifications. Goal blood pressures to be below 140/90 (2) Chronic cough: Code(s): R05.3 - Chronic cough Plan: Has resolved. Of note allergy testing showed significant environmental allergens. Has been started on montelukast which has been very helpful. Only using his inhalers as needed at this time. (3) Asthma: Code(s): J45.909 - Unspecified asthma, uncomplicated Qualifiers: Asthma severity: mild Asthma persistence: intermittent Asthma complication type: uncomplicated Qualified Code(s): J45.20 - Mild intermittent asthma, uncomplicated Plan: As above Orders: Orders Hemoglobin A1c Today R73.09 - Other abnormal glucose Comprehensive [place]. Panel Fast Today R73.09 - Other abnormal glucose Medications: Changed From clindamycin phosphate 1% topical DAILY PRN L70.9 - Acne, unspecified To clindamycin phosphate 1% 1 appl topical DAILY 30 days 60 grams 1RF L70.9 - Acne, unspecified From hydrochlorothiazide 25 mg PO DAILY 30 days 30 tabs 3RF I10 - Essential (primary) hypertension To hydrochlorothiazide 25 mg PO DAILY 90 days 90 tabs 2RF I10 - Essential (primary) hypertension Refilled montelukast 10 mg PO BEDTIME 90 days 90 tabs 2RF J45.20 - Mild intermittent asthma, uncomplicated Coding Level of Care Code Est Pt Level 4 (85313) Diagnoses Primary hypertension I10 Hypertension type: primary hypertension Chronic cough R05.3 Mild intermittent asthma without complication J45.20 Asthma severity: mild Asthma persistence: intermittent Asthma complication type: uncomplicated
[2023-10-05 08:44] VITALS: BP 130/90; PULSE 79; O2SAT 99; BMI 29.2
== END 2023-10-05 09:23 | disposition home or self-care (01) ==
PROVIDERS: PCP Physician Assistant; Visit Provider Physician Assistant
DX: I10 Essential (primary) hypertension (principal); R05.3 Chronic cough; J45.20 Mild intermittent asthma, uncomplicated
CPT/HCPCS: 99214

== ENCOUNTER 2024-03-02 15:28 | Emergency (ER) | payer OTHER, SELFPAY ==
--- NOTE | ~2024-03-02 | CT_ITS ---
EXAMINATION: CT ABDOMEN AND PELVIS WITH CONTRAST CLINICAL INFORMATION: Lower abdominal pain and left testicular pain COMPARISON: CT abdomen pelvis 03/17/2021 TECHNIQUE: Multidetector volumetric imaging was performed from the superior aspect of the liver through the pubic symphysis with intravenous contrast. A total of 85 mL of Omnipaque 350 was utilized for the study. Sagittal and coronal reformatted images were obtained on the technologist's workstation. This CT examination was performed using dose optimization techniques as appropriate, variously including the following: *Automated exposure control *Adjustment of mA and/or kV according to patient size (this includes techniques or standardized protocols for targeted exams where dose is matched to indication/reason for exam; i.e. extremities or head) *Use of iterative reconstruction technique DLP: 676 mGy-cm FINDINGS: LUNG BASES: The visualized lung bases are unremarkable. LIVER, GALLBLADDER, AND BILIARY TREE: The liver is normal in size, shape, and attenuation. No focal hepatic lesion or biliary ductal dilatation is present. The gallbladder is unremarkable with no evidence of radiopaque gallstones, gallbladder wall thickening, or obvious pericholecystic inflammatory changes. PANCREAS: Unremarkable. SPLEEN: Unremarkable. ADRENAL GLANDS: Unremarkable. KIDNEYS AND URETERS: The kidneys are normal in size, shape, and attenuation. There is a new 1.6 cm mid to upper left posterior renal mass present which is not a simple cyst and measures 41 Hounsfield units and is slightly heterogeneous. No other renal masses are seen. No hydronephrosis, hydroureter, or calculi seen. No perinephric stranding. BLADDER: Unremarkable. GASTROINTESTINAL TRACT: The small and large bowel are unremarkable. There are some colonic diverticula present without diverticulitis. The previous changes of colitis in the descending colon on the 2020 exam have completely resolved. The appendix is unremarkable. ABDOMINAL WALL: No significant hernia is appreciated. LYMPH NODES: Normal. VASCULAR: Unremarkable. PELVIC VISCERA: There is mild BPH. Seminal vesicles are unremarkable. OSSEOUS STRUCTURES: Unremarkable. CT/CT abdomen pelvis w IV con IMPRESSION: 1. A cause for the patient's lower abdominal pain and left testicular pain has not been found. 2. Incidental note made of a new 1.6 cm left renal mass which is not a simple cyst. Renal ultrasound could be performed to assess if this is a Bosniak class II cyst however if this is not visualized at ultrasound, MRI should be performed for further evaluation. 3. Other incidental findings as described above. Fleischner guidelines were followed. Electronically signed by: Haile Jacobo MD 03/02/2024 08:30 PM [facility]
--- NOTE | ~2024-03-02 | US_ITS ---
EXAMINATION: US SCROTUM CLINICAL INFORMATION: Lower abdominal and testicular pain.. COMPARISON: None available. TECHNIQUE: A sonogram of the scrotum was performed assessing fritz-scale appearance and color Doppler flow. Spectral Doppler analysis of the arterial and venous flow were performed in the testes bilaterally. FINDINGS: RIGHT: Right testicle measures 4.0 x 1.8 x 2.8 cm, volume 10.7 mL. No focal testicular parenchymal lesions are visualized. Spectral Doppler analysis of the arterial and venous flow is normal in the right testis. Right epididymal head is normal in size. A 1 mm right epididymal head cyst versus spermatocele is seen. No right hydrocele or varicocele is seen. Right epididymal Doppler flow is normal. LEFT: Left testicle measures 3.3 x 2.1 x 2.9 cm, volume 10.3 mL. No focal testicular parenchymal lesions are visualized. Spectral Doppler analysis of the arterial and venous flow is normal in the left testis. Left epididymal head is normal in size. Abutting and likely arising exophytically from the epididymal tail is a 7 x 5 x 6 mm heterogeneously hypoechoic soft tissue density. No left hydrocele or varicocele is seen. Left epididymal Doppler flow is normal. US/US scrotum doppler IMPRESSION: 1. A 7 mm heterogeneously hypoechoic nodule appears to arise exophytically from the left epididymal tail. Epididymal lesions are most commonly benign, with differential possibilities including but not limited to: Adenomatoid tumor, papillary cystadenoma of the epididymis and sperm granulomas. The exact etiology is indeterminate. Urology evaluation and management are recommended. 2. A 1 mm right epididymal head cyst versus spermatocele is seen. 3. No testicular mass or torsion is seen. There is no hydrocele or varicocele. Electronically signed by: Daniel Del Valle MD 03/02/2024 07:16 PM [facility]
--- NOTE | 2024-03-02 15:54 | ED.ABDPAIN ---
HPI - Abdominal Pain General Chief Complaint: Abdominal Pain Stated Complaint: lower abd pain and testicle pain Time Seen by Provider: 03/02/24 16:17 History of Present Illness ED Provider: Ekta ANDREWS narrative: The patient is a 33-year-old male who is generally in good health. He has no abdominal surgical history. He says that he has had abdominal symptoms for about 3 days. He says 3 days ago he did a strenuous weightlifting workout and he thought that perhaps he had strained something. He has had some lower abdominal pain. He has a some left groin pain and left testicular pain for about 2 days. Today he was able to drink fluids but felt he was not interested in food and felt somewhat nauseated by the idea of eating food. He also developed some epigastric discomfort. No fever. No vomiting. Related Data Previous Rx's ?Medication ?Instructions ?Recorded miscellaneous medical supply #1 ea 08/20/22 (Blood Pressure Cuff) albuterol sulfate 90 mcg/actuation 1 inh inhalation QID PRN shortness 04/20/23 aerosol inhaler of breath or wheezing 30 days #8.5 grams budesonide 90 mcg/actuation breath 1 inh inhalation BID 30 days #1 ea 07/09/23 activated powder inhaler clindamycin phosphate 1 % topical 1 appl topical DAILY 30 days #60 10/05/23 gel grams hydrochlorothiazide 25 mg tablet 25 mg PO DAILY 90 days #90 tabs 10/05/23 montelukast 10 mg tablet 10 mg PO BEDTIME 90 days #90 tabs 10/05/23 Allergies Allergy/AdvReac Type Severity Reaction Status Date / Time metoprolol AdvReac Intermediate Fatigued Verified 03/02/24 16:00 SEASONAL ALLERGIES Allergy Unknown RUNNY Uncoded 10/05/23 09:11 NOSE, WATERY EYES Review of Systems Review of Systems Yes all other systems are reviewed and are negative [facility] Past Medical History Medical History History of Owen de la Tourette's syndrome History of COVID-19 (~11/2020) Colitis Compartment syndrome of right lower extremity Surgical History History of colonoscopy H/O removal of cyst Family History Family History Mother HTN (hypertension) MVP (mitral valve prolapse) Diabetes Father Diabetes HTN (hypertension) Substance use disorder Maternal Grandfather Heart attack CAD (coronary artery disease) Paternal Grandfather Skin cancer, Onset Age: 80 Bladder cancer Social History Social History Housing: House Alcohol intake: current Alcohol intake frequency: holidays/special occasions only Patient Tobacco Use Status: Never used Tobacco e-Cigarette/Vaping Use: Never Used Second Hand Smoke Exposure: No Advance Directives: No Advance Directives Information Provided: Yes service: No Current occupational status: employed 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 He does not appear in acute distress. [facility] Head: Yes normal to inspection Face and sinus: Yes normal facial exam Mouth: Normal oral and palatal mucosa present and moist mucous membranes Eyes General: appearance normal, both eyes and all related structures Neck Neck: Yes full ROM Resp Effort & Inspection: normal respiratory effort Auscultation: clear to auscultation bilaterally Cardio Rate: regular rate Rhythm: regular rhythm Heart sounds: S1 normal heart sound present and S2 normal heart sound present GI Other: The abdomen is flat and soft. He is fairly tender in the right lower quadrant but without rebound or guarding. Skin Other: Skin is dry and unremarkable Neuro Other: The patient is awake and alert with a normal mental status. Cranial nerves are grossly intact. He moves his extremities normally and is grossly neurologically intact. Extrem Other: No peripheral edema Course Course Course Narrative: This is a Rapid Medical Exam performed in triage by Adalgisa Roche PA-C. Full HPI, ROS and PE to be performed by primary ED provider. 33-year-old male with a past medical history colitis, HTN, asthma presenting to the ED c/o left lower abdominal/groin/testicular pain and bilateral lower abdominal pain x few days. admits to cloudy urine & nausea PE: HTNsive 183/120 > denies taking BP meds today. Nontoxic appearing Plan: labs, UA, CTNG, Scrotal US, CTAP Medical Decision Making Medical Decision Making MDM Narrative: The patient is 33-year-old male who presents with left testicular pain and also generalized abdominal pain. He is tender in the right lower quadrant. Scrotal ultrasound shows no torsion. There is a small mass on his left epididymis. CT scan of the abdomen and pelvis shows no appendicitis or other acute process. There is a left renal mass. There has been a very long delay in the radiology reports. The patient was discharged prior to the results of the ultrasound of his scrotum and the results of the CT scan of his abdomen and pelvis. I subsequently called the patient. I explained that the radiologist indicated that both the mass in the left epididymis and the mass in the left kidney were recommended to have follow up. He was given the contact information for Dr. Stevenson of Urology. He has an appointment with his PCP next week who I believe can order an ultrasound to help better evaluate the left renal mass. The patient understands the need for follow up of both of these issues. Lab Data 03/02/24 16:16 03/02/24 16:16 Labs: Lab Results 03/02/24 Range/Units 16:16 WBC 11.4 H (4.8-10.8) X10*3/uL RBC 5.60 (4.60-5.80) X10*6/uL Hgb 16.1 (14.0-18.0) g/dl Hct 46.4 (42.0-52.0) % MCV 82.9 (80.0-98.0) fL MCH 28.8 (27.0-33.0) pg MCHC 34.7 (31.0-36.0) g/dl RDW 12.5 (11.0-16.0) % Plt Count 270 (160-400) X10*3/uL MPV 10.7 (9.4-12.4) fL Immature Gran % (Auto) 0.4 (0.0-0.4) % Neut % (Auto) 69.1 (45-73) % Lymph % (Auto) 21.0 (20-40) % [place] % (Auto) 8.1 (2-11) % Eos % (Auto) 1.1 (0-4) % Baso % (Auto) 0.3 (0-2) % Lymph # (Auto) 2.4 (1.2-4.9) X10*3/uL [place] # (Auto) 0.9 (0.1-1.2) X10*3/uL Eos # (Auto) 0.1 (0.0-0.4) X10*3/uL Baso # (Auto) 0.0 (0.0-0.2) X10*3/uL Abs Immat Gran (auto) 0.04 H (0.00-0.03) X10*3/uL Absolute Neuts (auto) 7.9 (2.0-8.3) x10*3/uL Absolute Nucleated RBC 0.000 (0.0-0.012) X10*3/uL Nucleated RBC % (auto) 0.0 (0.0-0.2) /100WBC Sodium 141 (135-145) mmol/L Potassium 3.7 (3.3-5.1) mmol/L Chloride 104 (96-108) mmol/L Carbon Dioxide 25 (22-29) mmol/L Anion Gap 16 (12-20) BUN 10 (9-16) mg/dL Creatinine 1.01 (0.5-1.4) mg/dL Estim Creat Clear Calc 125.0 Estimated GFR > 60 Random Glucose 99 (60-115) mg/dL Calcium 9.7 (8.4-10.2) mg/dL Magnesium 1.9 (1.6-2.6) mg/dL Total Bilirubin 1.0 (0.0-1.0) mg/dL Direct Bilirubin 0.3 (0.0-0.5) mg/dL AST 24 (5-37) U/L ALT 34 (0-40) U/L Alkaline Phosphatase 76 (39-117) U/L Total Protein 7.5 (6.5-8.0) g/dL Albumin 4.5 (3.5-5.0) g/dL Lipase 12 (8-78) U/L Urine Color Yellow Urine Appearance Clear Urine pH 7.0 (5.0-9.0) Ur Specific [place] 1.020 (1.005-1.025) Urine Protein Negative (Neg-Trace) mg/dL Urine Glucose (UA) Negative (Negative) mg/dL Urine Ketones Negative (Negative) mg/dL Urine Blood Negative (Negative) Urine Nitrite Negative (Negative) Ur Leukocyte Esterase Negative (Negative) Medications Administered Discontinued Medications Generic Name Dose Route Start Last Admin Trade Name Freq PRN Reason Stop Dose Admin Al Hydroxide/Mg Hydroxide 30 ml 03/02/24 18:18 03/02/24 18:28 Magnesium Hydrox/Alum Hydrox 30 Ml Oral.Susp PO 03/02/24 18:19 30 ml ONCE ONE Administration Iohexol 100 ml 03/02/24 17:22 03/02/24 17:23 Iohexol 350 Mg/Ml 100 Ml Infus..Btl IV 03/02/24 17:23 85 ml ONCE ONE Administration Discharge Plan Discharge Clinical Impression: Abdominal pain, Left testicular pain Patient Disposition: Home, Self-Care Additional Instructions: Your blood testing and urine testing are very reassuring. The official reading of your CT scan and your ultrasound is not yet available but my suspicion for appendicitis or other acutely dangerous process is very low. Therefore you are being discharged before these results are back. I will call you at [phone] if there are any concerning findings on these tests. Otherwise please plan on keeping your appointment with your regular medical provider next week. Return to the emergency room if significantly worse. Prescriptions: No Action albuterol sulfate 90 mcg/actuation HFA aerosol inhaler 1 inh inhalation QID PRN (Reason: shortness of breath or wheezing) 30 Days Qty: 8.5 3RF (DME) Blood Pressure Cuff Misc See Rx Instructions .ROUTE .MEDSUPPLY Qty: 1 0RF Rx Instructions: As directed budesonide 90 mcg/actuation aerosol powdr breath activated 1 inh inhalation BID 30 Days Qty: 1 1RF clindamycin phosphate 1 % gel 1 appl topical DAILY 30 Days Qty: 60 1RF hydrochlorothiazide 25 mg tablet 25 mg PO DAILY 90 Days Qty: 90 2RF montelukast 10 mg tablet 10 mg PO BEDTIME 90 Days Qty: 90 2RF Referrals: Jonh Stevenson MD [Physician] - Randy Irwin PA-C [Primary Care Provider] - (Abdominal pain, testicular pain) Discharge Date/Time: 03/02/24 19:01 Print Language: Cameroonian
[2024-03-02 15:55] VITALS: BP 179/124; PULSE 90; RESP 18; TEMP 35.9; O2SAT 99; BMI 28.1
[2024-03-02 16:27] LABS: MANUAL DIFF FLAG NO
[2024-03-02 16:29] LABS: Basophils Percent Auto 0.3 % (0-2); Eosinophils Absolute Auto 0.1 X10*3/uL (0.0-0.4); Eosinophils Percent Auto 1.1 % (0-4); Hematocrit 46.4 % (42.0-52.0); Hemoglobin 16.1 g/dl (14.0-18.0); Imm Gran Abs Auto 0.04 X10*3/uL (0.00-0.03); Imm Gran Pct Auto 0.4 % (0.0-0.4); Lymphocytes Absolute Auto 2.4 X10*3/uL (1.2-4.9); Mean Corpuscular HGB Conc 34.7 g/dl (31.0-36.0); Mean Corpuscular Hemoglobin 28.8 pg (27.0-33.0); Mean Corpuscular Volume 82.9 fL (80.0-98.0); Mean Platelet Volume 10.7 fL (9.4-12.4); Monocytes Absolute Auto 0.9 X10*3/uL (0.1-1.2); Monocytes Percent Auto 8.1 % (2-11); Neutrophils Absolute Auto 7.9 x10*3/uL (2.0-8.3); Neutrophils Percent Auto 69.1 % (45-73); Platelet Count 270 X10*3/uL (160-400); Red Cell Distribution Width 12.5 % (11.0-16.0); White Blood Count 11.4 X10*3/uL (4.8-10.8)
[2024-03-02 16:32] LABS: Appearance Urine Clear; Color Urine Yellow; Glucose Urine UA Negative (Negative); Leukocyte Esterase Urine Negative (Negative); Nitrite Urine Negative (Negative); Urine Blood Negative (Negative); Urine Ketones Negative (Negative); Urine Protein Negative (Neg-Trace)
[2024-03-02 16:45] LABS: Alanine Aminotransferase 34 U/L (0-40); Albumin Level 4.5 g/dL (3.5-5.0); Alkaline Phosphatase 76 U/L (39-117); Anion Gap 16 (12-20); Aspartate Amino Transferase 24 U/L (5-37); Bilirubin Direct 0.3 mg/dL (0.0-0.5); Blood Urea Nitrogen 10 mg/dL (9-16); Calcium 9.7 mg/dL (8.4-10.2); Carbon Dioxide 25 mmol/L (22-29); Chloride 104 mmol/L (96-108); Estimated Glomerular Filt Rate > 60; Glucose Random 99 mg/dL (60-115); Lipase 12 U/L (8-78); Magnesium 1.9 mg/dL (1.6-2.6); Potassium 3.7 mmol/L (3.3-5.1); Sodium 141 mmol/L (135-145); Total Protein 7.5 g/dL (6.5-8.0)
[2024-03-02] MEDS: iohexoL 350 MG/ML 100 ML INFUS..BTL IV (17:23)
[2024-03-02] MEDS: Magnesium Hydrox/Alum Hydrox 30 ML ORAL.SUSP PO (18:28)
[2024-03-02 18:54] VITALS: BP 159/109; PULSE 72; RESP 16; TEMP 36.7; O2SAT 95
[2024-03-02 18:55] VITALS: BP 148/99; PULSE 72
[2024-03-03 02:01] LABS: CT PCR NOT DETECTED (Not Detect.); NG PCR NOT DETECTED (Not Detect.)
== END 2024-03-02 19:01 | disposition home or self-care (01) ==
PROVIDERS: Physician Assistant; Emergency Provider Emergency Medicine; PCP Physician Assistant
DX: R10.30 Lower abdominal pain, unspecified (principal); N50.812 Left testicular pain
CPT/HCPCS: 36415; 74177; 76870; 80048; 80076; 81003; 83690; 83735; 85025; 87491; 87591; 93975; 99284; Q9967

== ENCOUNTER 2024-03-09 07:56 | Outpatient (AMB) | payer OTHER, SELFPAY ==
[2024-03-09 08:08] VITALS: BP 128/80; PULSE 78; O2SAT 98; BMI 28.3
--- NOTE | 2024-03-09 08:08 | MHC.PC.OV ---
Vital Signs 03/09/24 08:08 Height 6 ft Weight 209 lb BMI 28.3 BP 128/80 Blood Pressure Location Lt brachial Position Sitting Pulse 78 Pulse Source Pulse Oximeter Pulse Oximetry (%) 98 Oxygen Delivery Method Room Air Intake Visit Reasons: 5 Month F/U Allergies hydrochlorothiazide Adverse Reaction (Intermediate, Verified 03/09/24 08:35) ED metoprolol Adverse Reaction (Intermediate, Verified 03/09/24 08:27) Fatigued SEASONAL ALLERGIES Allergy (Unknown, Uncoded 03/09/24 08:27) RUNNY NOSE, WATERY EYES Medication List - Last Reconciled 03/09/24 by Randy Irwin PA-C albuterol sulfate 90 mcg/actuation 1 inh inhalation QID PRN 30 days budesonide 90 mcg/actuation 1 inh inhalation BID 30 days clindamycin phosphate 1% 1 appl topical DAILY 30 days miscellaneous medical supply (Blood Pressure Cuff) As directed Tobacco use date assessed: 03/09/24 Dental Screening Dental Screen Date: 03/09/24 Did you have a dental visit in the last 12 months?: Yes Did you have a dental problem in the last 6 months where you did not have access to dental care?: No Was dental information given to patient?: Patient has dentist HPI 5 Month F/U HPI Details Patient is a 33-year-old male here today for problem visit. Patient has a past medical history significant for hypertension, asthma, allergies. concern--> Fabricio was recently seen at [place] emergency department (ED) on a recent Thursday due to abdominal and testicular pain following an abdominal workout. No hernias were found, but a small mass or cyst was noted on the left testicle with a suggestion to follow up with urology. Additionally, imaging revealed a left renal mass, requiring further evaluation. Asthma: Has noted to have significant seasonal allergies. Was started on montelukast which really helped his sinuses and chronic cough. He has stopped using montelukast those allergy symptoms have not come back. Hypertension: Patient was previously on hydrochlorothiazide though had side effects. He is willing to transition to lisinopril for blood pressure control and start doing home blood pressure monitoring. . Advised to monitor blood pressure closely at home . [facility] Medical History History of Owen de la Tourette's syndrome History of COVID-19 (~11/2020) Colitis Compartment syndrome of right lower extremity Surgical History History of colonoscopy H/O removal of cyst Family History Mother HTN (hypertension) MVP (mitral valve prolapse) Diabetes Father Diabetes HTN (hypertension) Substance use disorder Maternal Grandfather Heart attack CAD (coronary artery disease) Paternal Grandfather Skin cancer, Onset Age: 80 Bladder cancer Social History Housing: House Alcohol intake: current Alcohol intake frequency: holidays/special occasions only Patient Tobacco Use Status: Never used Tobacco Tobacco use type: Cigarette e-Cigarette/Vaping Use: Never Used Second Hand Smoke Exposure: No service: No Current occupational status: employed 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 1. Little interest or pleasure in doing things: not at all 2. Feeling down, depressed, or hopeless: not at all 3. Trouble falling or staying asleep, or sleeping too much: not at all 4. Feeling tired or having little energy: not at all 5. Poor appetite or overeating: not at all 6. Feeling bad about yourself - or that you are a failure or have let yourself or your family down: not at all 7. Trouble concentrating on things, such as reading the newspaper or watching television: not at all 8. Moving or speaking so slowly that other people could have noticed. Or the opposite - being so fidgety or restless that you have been moving around a lot more than usual: not at all 9. Thoughts that you would be better off or of hurting yourself in some way: not at all Total score: 0 Depression Screening Interpretation: Negative Depression Screening Done: Yes 44243 - PHQ-9 Billing: Yes Source: Developed by Drs. Eugene Birmingham, Ashly Smith, Adonay Wynn and colleagues, with an educational juanis from [employer]. Thrive Questionnaire Date Thrive assessed: 03/09/24 I am a: Patient What is your living situation today?: I have a steady place to live Within the past 12 months, did the food you bought not last and you didn't have the money to get more?: Never true Within the past 12 months, did you worry whether your food would run out before you got money to buy more?: Never true Do you have trouble paying for medicines?: No Do you have trouble getting transportation to medical appointments?: No Do you have trouble paying your heating and electricity bill?: No Do you have trouble taking care of your child, family member or friend?: No Do you have trouble with day-to-day activities such as bathing, preparing meals, shopping, managing finances, etc.?: No Are you currently unemployed and looking for a job?: No Are you interested in more education?: No Currently or been in a relationship where the following occur: No concerns reported THRIVE Score: 0 AUDIT C Alcohol Use Questionnaire (AUDIT-C) 1. How often do you have a drink containing alcohol?: Monthly or less 2. How many drinks containing alcohol do you have on a typical day when you are drinking?: 1 or 2 3. How often do you have six or more drinks on one occasion?: Never Total Score: 1 ARI-7 AMB Questionnaire ARI-7 Date ARI - 7 assessed: 03/09/24 Feeling nervous, anxious, or on edge: 0 = Not at all Not being able to stop or control worryin = Not at all Worrying too much about different things: 0 = Not at all Trouble relaxin = Not at all Being so restless that it is hard to sit still: 0 = Not at all Becoming easily annoyed or irritable: 0 = Not at all Feeling afraid as if something awful might happen: 0 = Not at all Total ARI-7 score (0-4 normal; 5-9 mild; 10-14 moderate; 15-21 severe): 0 Source: Developed by Drs. Eugene Birmingham, Ashly Smith, Adonay Wynn and colleagues, with an educational juanis from [employer]. Review of Systems Const Denies headache(s) Eyes Denies loss of vision ENT Denies vertigo, Denies dizziness, Denies headache(s) and Denies sore throat Card Denies chest pain, Denies leg edema and Denies lightheadedness Resp Denies cough, Denies hemoptysis and Denies wheezing GI Denies abdominal pain, Denies melena, Denies constipation, Denies diarrhea and Denies vomiting Denies dysuria, Denies urinary frequency and Denies urinary urgency Musc Denies arthralgias, Denies joint swelling, Denies numbness and Denies tingling Neuro Denies Abnormal speech present, Denies behavioral changes, Denies vertigo, Denies dizziness, Denies headache(s), Denies loss of vision, Denies memory loss, Denies numbness and Denies tingling Psych Denies anxiety, Denies behavioral changes, Denies depression, Denies memory loss and Denies panic attacks Dilshad/Lymph Denies easy bleeding and Denies easy bruising Aller/Immun Denies wheezing Physical exam (Primary Care) Vital Signs: Last Vital Signs Pulse 78 03/09/24 08:08 BP 128/80 03/09/24 08:08 Pulse Ox 98 03/09/24 08:08 Oxygen Delivery Method Room Air 03/09/24 08:08 BMI result Body Mass Index 28.3 Tobacco/Smoking Status: Tobacco use Status Tobacco use date assessed 03/09/24 03/09/24 08:14 Patient Tobacco Use Status Never used Tobacco 03/09/24 08:14 Tobacco use type Cigarette 03/09/24 08:14 e-Cigarette/Vaping Use Never Used 03/09/24 08:14 PHQ-9: PHQ-9 Score PHQ-9: Total score 0 03/09/24 08:14 Depression Screening Interpretation: Negative Thrive Assessment: Date of Thrive Assessment Date Thrive assessed 03/09/24 03/09/24 08:14 Currently or been in a relationship where the following occur: No concerns reported Const General: healthy appearing, no acute distress, alert and awake Nutritional Appearance: well nourished Orientation/consciousness: oriented to person, oriented to place and oriented to time HENMT Ears: TM's normal bilaterally General nose exam: Normal nasal mucous membranes and turbinates present Eyes Conjunctivae: conjunctivae normal Sclerae: sclerae normal Pupils: Equal, round and reactive pupils present Neck Neck: Yes no lymphadenopathy and Yes no JVD Thyroid: Thyroid normal Carotids: no bruits Resp Effort & Inspection: normal respiratory effort and not tachypneic Auscultation: no crackles, no rales, no rhonchi and no wheezes Cardio Rate: regular rate Rhythm: regular rhythm Heart sounds: no murmurs and normal S1 and S2 GI Palpation (GI): Soft to palpation, nontender, no hepatomegaly and no splenomegaly Auscultation: normal bowel sounds Skin General skin exam: no rashes or lesions noted and dry skin Neuro General: oriented to person, oriented to place and oriented to time Cranial nerves: Yes Equal, round and reactive pupils present Speech: No Abnormal speech present Gait exam (Neuro): Normal gait present Motor exam (neuro): no tremor noted Extrem Right upper extremity: full ROM Left upper extremity: full ROM Right lower extremity: full ROM; no edema Left lower extremity: full ROM; no edema Psych Mental Status: mental status grossly normal Speech and movement: Normal speech and movement present Affect: normal affect Attitude: cooperative Thought process: Normal thought process present Coding Level of Care Code Est Pt Level 4 (98574) Diagnoses Primary hypertension I10 Hypertension type: primary hypertension Left renal mass N28.89 Epididymal cyst N50.3 Additional Codes PHQ-9 - 52890 - PHQ-9 Billing: Yes ([id number]) Assessment & Plan Assessment & Plan (1) Hypertension: Code(s): I10 - Essential (primary) hypertension Category: Medical Qualifiers: Hypertension type: primary hypertension Qualified Code(s): I10 - Essential (primary) hypertension Plan: Transition patient from Hydrochlorothiazide to Lisinopril; initiate at a low dose of 10 mg. Monitor patient blood pressure at home, encourage continuation of lifestyle modifications. (2) Left renal mass: Code(s): N28.89 - Other specified disorders of kidney and ureter Category: Medical Plan: Order ultrasound imaging to assess the renal mass. (3) Epididymal cyst: Code(s): N50.3 - Cyst of epididymis Category: Medical Plan: Expedite ultrasound imaging of the affected region and urology consult for further evaluation. Orders: Orders Comprehensive [place]. Panel Fast Today I10 - Essential (primary) hypertension US renal LT Today N28.89 - Other specified disorders of kidney and ureter Microalbumin, Random (w Creat) Today I10 - Essential (primary) hypertension Complete Blood Count no Diff Today I10 - Essential (primary) hypertension Referrals Urology Referral N50.3 - Cyst of epididymis Medications: New lisinopril 10 mg PO DAILY 30 days 30 tabs 1RF I10 - Essential (primary) hypertension
== END 2024-03-09 08:43 | disposition home or self-care (01) ==
PROVIDERS: PCP Physician Assistant; Visit Provider Physician Assistant
DX: I10 Essential (primary) hypertension (principal); N28.89 Other specified disorders of kidney and ureter; N50.3 Cyst of epididymis

== ENCOUNTER → 2024-03-09 07:56 | Outpatient (BNVA) | payer OTHER, SELFPAY | PROVIDERS: PCP Physician Assistant; Visit Provider Physician Assistant | DX: I10 Essential (primary) hypertension (principal); N28.89 Other specified disorders of kidney and ureter; N50.3 Cyst of epididymis; Z79.899 Other long term (current) drug therapy | CPT/HCPCS: 96127 ==

== ENCOUNTER 2024-03-11 15:25 | Outpatient (REF) | payer OTHER, SELFPAY ==
--- NOTE | ~2024-03-11 | US_ITS ---
EXAMINATION: US RETROPERITONEAL LIMITED, LEFT(RENAL ONLY) CLINICAL INFORMATION: Left kidney mass. COMPARISON: CT abdomen and pelvis on 03/02/2024 TECHNIQUE: Real-time imaging of the left kidney. FINDINGS: LEFT KIDNEY: 11.0 x 4.4 x 4.7 cm (SAG x AP x TRV). The kidney is normal in size, contour, and echogenicity. Renal cortical thickness is normal. No calculi or focal parenchymal lesions. No hydronephrosis. There is a 1.1 cm simple cyst which does not require follow-up. US/US renal LT IMPRESSION: Left upper pole single cyst. No further follow-up is required. Electronically signed by: Elen Villaseñor MD 03/11/2024 08:30 PM ERNIE NASCIMENTO
== END 2024-03-11 15:26 | disposition home or self-care (01) ==
LOC: HO.US 15:25
PROVIDERS: Visit Provider Physician Assistant
DX: N28.89 Other specified disorders of kidney and ureter (principal)
CPT/HCPCS: 76775

== ENCOUNTER 2024-04-27 08:25 | Outpatient (AMB) | payer OTHER, SELFPAY ==
--- NOTE | 2024-04-27 08:29 | MHC.OFFVIS ---
Intake Visit Reasons: scrotal mass/spermatocele? Intake Note: Patient is present for SCORTAL MASS/SPERMATOCELE Urology Medication:NONE Antibiotic Allergy:NONE Blood Thinner:NONE Cardiovascular Tech Required: No Allergies hydrochlorothiazide Adverse Reaction (Intermediate, Verified 04/27/24 08:30) ED metoprolol Adverse Reaction (Intermediate, Verified 04/27/24 08:30) Fatigued SEASONAL ALLERGIES Allergy (Unknown, Uncoded 04/27/24 08:30) RUNNY NOSE, WATERY EYES HPI Comments Details: Sadi is a pleasant male. He is a patient of Dr. Irwin. 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 7 mm Left 1.6 cm renal cyst Bosniak 2 [facility] Medical History (Updated 04/27/24 @ 09:04 by Jonh Stevenson MD) Left renal mass History of Owen de la Tourette's syndrome History of COVID-19 (~11/2020) Colitis Compartment syndrome of right lower extremity Surgical History History of colonoscopy H/O removal of cyst Family History Mother HTN (hypertension) MVP (mitral valve prolapse) Diabetes Father Diabetes HTN (hypertension) Substance use disorder Maternal Grandfather Heart attack CAD (coronary artery disease) Paternal Grandfather Skin cancer, Onset Age: 80 Bladder cancer Social History Housing: House Alcohol intake: current Alcohol intake frequency: holidays/special occasions only Patient Tobacco Use Status: Never used Tobacco Tobacco use type: Cigarette e-Cigarette/Vaping Use: Never Used Second Hand Smoke Exposure: No service: No Current occupational status: employed 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 Cognitive needs: No Hearing needs: No Vision needs: Yes (Glasses/Contacts) Review of Systems Const Denies chills and Denies fever(s) Card Reports no additional complaints and Denies syncope Resp Denies cough GI Denies abdominal pain and Denies heartburn Reports as per HPI and Denies change in libido Neuro Denies syncope Psych Denies change in libido Endo Denies change in libido Physical Exam Const General: cooperative, healthy appearing, comfortable and no acute distress Orientation/consciousness: patient oriented x3 HEENT Face and sinus: Yes normal facial exam Mouth: moist mucous membranes Neck Neck: Yes normal visual inspection, Yes full ROM and Yes trachea midline Chest Chest palpation & inspection: normal inspection of the chest Resp Effort & Inspection: normal respiratory effort, able to speak in complete sentences and no respiratory distress GI Inspection: Yes normal to inspection Back/Spine/Pelvis Cervical Spine: normal cervical lordosis Thoracic/Lumbar Spine: thoracic and lumbar spine normal to inspection Skin General skin exam: no rashes or lesions noted Neuro General: patient oriented x3, gait normal, tone normal and moves all extremities Extrem General: Yes normal to inspection and Yes capillary refill normal Assessment & Plan Assessment & Plan (1) Epididymal cyst: Code(s): N50.3 - Cyst of epididymis Category: Medical (2) Renal cyst: Code(s): N28.1 - Cyst of kidney, acquired Category: Medical Plan Might benefit from repeat renal scan in 3-4 years to reassess cyst Patient Instructions: Imaging studies, laboratory and physical exam results were discussed and reviewed in detail. No major barriers to patient understanding were identified. An opportunity to ask questions regarding the treatment plan was provided. All questions were answered. The patient expressed understanding and agreement with the above treatment plan. The patient is aware they should contact our office by phone for worsening of their current condition or the appearance of new urologic symptoms. Compliance is encouraged with any medications and followup testing that is ordered. It is a privilege to participate in the urologic care of your patient. If you have any questions or concerns regarding treatment for the above conditions, or other urologic issues, please do not hesitate to contact me. The office telephone contact is [phone]. This note is constructed using voice recognition software. While every effort has been made to ensure accuracy inclinometer tester errors may have been included. Yours sincerely, Dr Jonh Stevenson MD, [facility] - Urology Providers of Expert, Compassionate Care for the Genitourinary System Coding Level of Care Code New Pt Level 3 (94089) Diagnoses Epididymal cyst N50.3 Renal cyst N28.1
== END 2024-04-27 09:04 | disposition home or self-care (01) ==
PROVIDERS: PCP Physician Assistant; Visit Provider Urology
DX: N50.3 Cyst of epididymis (principal); N28.1 Cyst of kidney, acquired
CPT/HCPCS: 99203

== ENCOUNTER 2024-09-07 08:30 | Outpatient (AMB) | payer OTHER, SELFPAY ==
--- NOTE | 2024-09-07 08:33 | MHC.PC.OV ---
Vital Signs 09/07/24 08:34 Height 6 ft Weight 217 lb 6 oz BMI 29.5 BP 132/78 Blood Pressure Location Lt brachial Position Sitting Pulse 78 Pulse Source Pulse Oximeter Temp 97.1 F Temp Source Temporal Artery Scan Pulse Oximetry (%) 97 Oxygen Delivery Method Room Air Intake Visit Reasons: Annual Exam Intake Note: Patient is here today for a physical. 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 Barrel Raiser: Not Required per policy Accompanied by: Self / Same As Patient Allergies hydrochlorothiazide Adverse Reaction (Intermediate, Verified 09/07/24 08:40) ED metoprolol Adverse Reaction (Intermediate, Verified 09/07/24 08:40) Fatigued SEASONAL ALLERGIES Allergy (Unknown, Uncoded 09/07/24 08:40) RUNNY NOSE, WATERY EYES Medication List - Last Reconciled 09/07/24 by Randy Irwin PA-C albuterol sulfate 90 mcg/actuation 1 inh inhalation QID PRN 30 days budesonide 90 mcg/actuation 1 inh inhalation BID 30 days clindamycin phosphate 1% 1 appl topical DAILY 30 days lisinopril 10 mg PO DAILY 30 days miscellaneous medical supply (Blood Pressure Cuff) As directed Tobacco use date assessed: 09/07/24 Dental Screening Dental Screen Date: 09/07/24 Did you have a dental visit in the last 12 months?: Yes Did you have a dental problem in the last 6 months where you did not have access to dental care?: No Was dental information given to patient?: Patient has dentist HPI Annual Exam HPI Details atient is a 34-year-old male here today for routine annual physical Patient has a past medical history significant for hypertension, asthma, allergies. concern--> Fabricio reported issues with neck numbness on the left side, persisting for over a year. The patient previously experienced a concerning episode perceived as an anxiety attack, prompting a hospital visit where heart concerns were addressed. Despite a clear cardiac scan, the neck numbness persists, indicating a possible cervical radiculopathy, potentially associated with nerve compression in the cervical spine region. Asthma: Has noted to have significant seasonal allergies. Was started on montelukast which really helped his sinuses and chronic cough. He has stopped using montelukast those allergy symptoms have not come back. Hypertension: Patient continues on lisinopril 10 mg with good effect on his blood pressure. Today's blood pressure acceptable in office. . Advised to monitor blood pressure closely at home . Vaccines:? Up-to-date with COVID vaccine, tetanus vaccine and flu vaccine, [facility] Medical History (Updated 09/07/24 @ 08:56 by Randy Irwin PA-C) Left renal mass History of [place] de la Tourette's syndrome History of COVID-19 (~11/2020) Compartment syndrome of right lower extremity Surgical History History of colonoscopy H/O removal of cyst Family History Mother HTN (hypertension) MVP (mitral valve prolapse) Diabetes Father Diabetes HTN (hypertension) Substance use disorder Maternal Grandfather Heart attack CAD (coronary artery disease) Paternal Grandfather Skin cancer, Onset Age: 80 Bladder cancer Social History (Updated 09/07/24 @ 08:47 by Randy Irwin PA-C) Housing: House Alcohol intake: current Alcohol intake frequency: a few times a month Alcohol type: beer Patient Tobacco Use Status: Never used Tobacco Tobacco use type: Cigarette e-Cigarette/Vaping Use: Never Used Second Hand Smoke Exposure: No service: No Current occupational status: employed 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 1. Little interest or pleasure in doing things: not at all 2. Feeling down, depressed, or hopeless: not at all 3. Trouble falling or staying asleep, or sleeping too much: not at all 4. Feeling tired or having little energy: not at all 5. Poor appetite or overeating: not at all 6. Feeling bad about yourself - or that you are a failure or have let yourself or your family down: not at all 7. Trouble concentrating on things, such as reading the newspaper or watching television: not at all 8. Moving or speaking so slowly that other people could have noticed. Or the opposite - being so fidgety or restless that you have been moving around a lot more than usual: not at all 9. Thoughts that you would be better off or of hurting yourself in some way: not at all Total score: 0 Depression Screening Interpretation: Negative Depression Screening Done: Yes 79185 - PHQ-9 Billing: Yes Source: Developed by Drs. Eugene Birmingham, Ashly Smith, Adonay Wynn and colleagues, with an educational juanis from [employer]. Thrive Questionnaire Date Thrive assessed: 09/07/24 I am a: Patient What is your living situation today?: I have a steady place to live Within the past 12 months, did the food you bought not last and you didn't have the money to get more?: Never true Within the past 12 months, did you worry whether your food would run out before you got money to buy more?: Never true Do you have trouble paying for medicines?: No Do you have trouble getting transportation to medical appointments?: No Do you have trouble paying your heating and electricity bill?: No Do you have trouble taking care of your child, family member or friend?: No Do you have trouble with day-to-day activities such as bathing, preparing meals, shopping, managing finances, etc.?: No Are you currently unemployed and looking for a job?: No Are you interested in more education?: No Please select the resources that you would like help with: None Currently or been in a relationship where the following occur: No concerns reported THRIVE Score: 0 AUDIT C Alcohol Use Questionnaire (AUDIT-C) 1. How often do you have a drink containing alcohol?: Monthly or less 2. How many drinks containing alcohol do you have on a typical day when you are drinking?: 1 or 2 3. How often do you have six or more drinks on one occasion?: Never Total Score: 1 ARI-7 AMB Questionnaire ARI-7 Date ARI - 7 assessed: 09/07/24 Feeling nervous, anxious, or on edge: 0 = Not at all Not being able to stop or control worryin = Not at all Worrying too much about different things: 0 = Not at all Trouble relaxin = Not at all Being so restless that it is hard to sit still: 0 = Not at all Becoming easily annoyed or irritable: 0 = Not at all Feeling afraid as if something awful might happen: 0 = Not at all Total ARI-7 score (0-4 normal; 5-9 mild; 10-14 moderate; 15-21 severe): 0 Source: Developed by Drs. Eugene Birmingham, Ashly Smith, Adonay Wynn and colleagues, with an educational juanis from [employer]. ARI-7 Assessment Billing ARI-7 Assessment Tool: ARI-7 Assessment 11479 ACT Questionnaire In the past 4 weeks, how much of the time did your asthma keep you from getting as much done at work, school or at home?: None of the time During the past 4 weeks, how often have you had shortness of breath?: Not at all During the past 4 weeks, how often did your asthma symptoms wake you up at night or earlier than usual in the morning?: Not at all During the past 4 weeks, how often have you had to use your rescue inhaler or nebulizer medication?: Not at all How would you rate your asthma control during the past 4 weeks?: Completely controlled ACT Interpretation: Negative Score: 25 Review of Systems Const Denies body aches, Denies chills, Denies excessive sweating, Denies fatigue, Denies fever(s) and Denies headache(s) Eyes Denies blurry vision ENT Denies dysphagia, Denies vertigo, Denies dizziness, Denies headache(s), Denies hearing loss and Denies tinnitus Card Denies chest pain, Denies chest pain with activity, Denies syncope, Denies irregular heart rhythm and Denies dyspnea Resp Denies chest congestion, Denies cough, Denies hemoptysis, Denies dyspnea and Denies wheezing GI Denies abdominal pain, Denies melena, Denies hematochezia, Denies coffee ground emesis, Denies dysphagia, Denies diarrhea, Denies nausea and Denies vomiting Denies difficulty urinating, Denies dysuria, Denies urinary frequency, Denies urinary hesitancy and Denies urinary urgency Musc Denies arthralgias, Denies limited range of motion, Denies muscle cramps and Denies muscle weakness Skin/Breast Denies rash and Denies skin ulcer Neuro Denies Abnormal speech present, Denies confusion, Denies vertigo, Denies dizziness, Denies syncope, Denies headache(s), Denies memory loss and Denies seizure-like activity Psych Denies anxiety, Denies confusion, Denies depression, Denies memory loss, Denies panic attacks and Denies paranoia Endo Denies excessive sweating, Denies fatigue, Denies flushing, Denies polydipsia and Denies polyuria Aller/Immun Denies wheezing Physical exam (Primary Care) Vital Signs: Last Vital Signs Temp 97.1 F 09/07/24 08:34 Pulse 78 09/07/24 08:34 BP 132/78 09/07/24 08:34 Pulse Ox 97 09/07/24 08:34 Oxygen Delivery Method Room Air 09/07/24 08:34 BMI result Body Mass Index 29.5 Tobacco/Smoking Status: Tobacco use Status Tobacco use date assessed 09/07/24 09/07/24 08:38 Patient Tobacco Use Status Never used Tobacco 09/07/24 08:38 Tobacco use type Cigarette 09/07/24 08:38 e-Cigarette/Vaping Use Never Used 09/07/24 08:38 PHQ-9: PHQ-9 Score PHQ-9: Total score 0 09/07/24 08:38 Depression Screening Interpretation: Negative Thrive Assessment: Date of Thrive Assessment Date Thrive assessed 09/07/24 09/07/24 08:38 Currently or been in a relationship where the following occur: No concerns reported Const General: cooperative, comfortable, no acute distress, alert and awake; No confusion Orientation/consciousness: oriented to person, oriented to place, patient oriented x3 and No confusion HENMT Head: Yes normocephalic Ears: external ears normal and TM's normal bilaterally Face and sinus: No sinus tenderness Mouth: Normal oral and palatal mucosa present and tongue normal Teeth and gingiva: dentition normal and gingiva normal Throat: Yes posterior oropharynx normal, Yes tonsils normal and Yes uvula midline Eyes Conjunctivae: conjunctivae normal Sclerae: sclerae normal Pupils: Equal, round and reactive pupils present EOM: EOMs intact bilaterally Direct Ophthalmoscopy: No no photophobia Neck Neck: Yes no lymphadenopathy, No tender and Yes no JVD Thyroid: Thyroid normal Carotids: no bruits Chest Chest palpation & inspection: no tenderness Resp Effort & Inspection: normal respiratory effort, no audible wheezes, not labored and no stridor Auscultation: no crackles, no rales, no rhonchi and no wheezes Cardio Jugular venous distension: no JVD Rate: regular rate, not bradycardic and not tachycardic Rhythm: regular rhythm Bruits: no carotid bruits Peripheral pulses: Peripheral pulses 2+ throughout GI Inspection: Yes normal to inspection, No abdominal wall ecchymosis and No visible herniation Palpation (GI): Soft to palpation, nontender, no guarding, not rigid and No hepatosplenomegaly present Auscultation: normoactive bowel sounds General: Yes no CVA tenderness Back/Spine/Pelvis Back: no CVA tenderness and No back tenderness Cervical Spine: cervical ROM normal Thoracic/Lumbar Spine: thoracic and lumbar spine normal to inspection, straight leg raise negative bilaterally, No thoraco-lumbar ROM limited and No lumbar spinal tenderness Skin Lesions: no lesions Rashes: no rashes Wounds: no wounds Neuro General: oriented to person, oriented to place, patient oriented x3, CN's II-XI intact bilaterally and No confusion Cranial nerves: Yes Equal, round and reactive pupils present and Yes Normal accommodation reflex present Cognition (Neuro): normal cognition Speech: No Abnormal speech present Gait exam (Neuro): Normal gait present Motor exam (neuro): 5/5 motor strength present throughout Extrem Right upper extremity: full ROM; no cyanosis Left upper extremity: full ROM; no cyanosis Right lower extremity: no edema Left lower extremity: no edema Psych Appearance: grossly normal Mental Status: mental status grossly normal Affect: normal affect Attitude: cooperative Thought process: Normal thought process present Coding Level of Care Code Est Pt Prev Care 18-39y(32466) Diagnoses Annual physical exam Z00.00 Primary hypertension I10 Hypertension type: primary hypertension Cervical radiculopathy M54.12 Mild intermittent asthma without complication J45.20 Asthma severity: mild Asthma persistence: intermittent Asthma complication type: uncomplicated Additional Codes PHQ-9 - 30166 - PHQ-9 Billing: Yes ([id number]) ARI-7 Assessment Billing - ARI-7 Assessment Tool: ARI-7 Assessment 42263 ([id number]) Asthma Control Questionnaire - ACT Interpretation: Negative ([id number]) Assessment & Plan Assessment & Plan (1) Annual physical exam: Code(s): Z00.00 - Encounter for general adult medical examination without abnormal findings Category: Medical Plan: As per HPI (2) Hypertension: Code(s): I10 - Essential (primary) hypertension Category: Medical Qualifiers: Hypertension type: primary hypertension Qualified Code(s): I10 - Essential (primary) hypertension Plan: Transition patient from Hydrochlorothiazide to Lisinopril; initiate at a low dose of 10 mg. Monitor patient blood pressure at home, encourage continuation of lifestyle modifications. (3) Cervical radiculopathy: Code(s): M54.12 - Radiculopathy, cervical region Category: Medical Plan: Patient's signs and symptoms of left-sided jaw and numbness concerning for C3 radiculopathy. Recommend initial cervical spine imaging, possible follow-up with MRI, and consider physical therapy. (4) Asthma: Code(s): J45.909 - Unspecified asthma, uncomplicated Category: Medical Qualifiers: Asthma severity: mild Asthma persistence: intermittent Asthma complication type: uncomplicated Qualified Code(s): J45.20 - Mild intermittent asthma, uncomplicated Plan: Patient reports his asthma has been well controlled without use of a maintenance inhaler. Occasionally uses his albuterol inhaler. He denies any nighttime awakenings with asthma symptoms or recent asthma exacerbations. Orders: Orders Comprehensive [place]. Panel Fast Today I10 - Essential (primary) hypertension Complete Blood Count no Diff Today I10 - Essential (primary) hypertension Hemoglobin A1c Today R73.09 - Other abnormal glucose Patient Instructions: Goal: Blood pressure to remain below 140/90 Barriers: Adherence to physical activity and healthy eating habits
[2024-09-07 08:34] VITALS: BP 132/78; PULSE 78; TEMP 36.2; O2SAT 97; BMI 29.5
== END 2024-09-07 08:57 | disposition home or self-care (01) ==
LOC: HO.HMCH 08:30
PROVIDERS: PCP Physician Assistant; Visit Provider Physician Assistant
DX: Z00.00 Encounter for general adult medical examination without abnormal findings (principal); I10 Essential (primary) hypertension; M54.12 Radiculopathy, cervical region; J45.20 Mild intermittent asthma, uncomplicated

== ENCOUNTER → 2024-09-07 08:30 | Outpatient (BNVA) | payer OTHER, SELFPAY | PROVIDERS: PCP Physician Assistant; Visit Provider Physician Assistant | DX: Z00.00 Encounter for general adult medical examination without abnormal findings (principal); I10 Essential (primary) hypertension; J45.20 Mild intermittent asthma, uncomplicated; M54.12 Radiculopathy, cervical region; R73.09 Other abnormal glucose | CPT/HCPCS: 96127; 96160 ==